=== PATIENT | male | born 1960 | race Caucasian/White ===

== ENCOUNTER 2021-12-02 14:20 | Inpatient (IN) | payer MEDICARE, MEDICAID ==
[~2021-12-02] VITALS: Ht 177 cm; Wt 53.4 kg
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
[2021-12-02] MEDS ORDERED: NS IV 1000 ML 1,000 ML IV SCH (14:30)
[2021-12-02] MEDS ORDERED: inSUlin (REGULAR) HUMAN 1 UNIT/0.01 ML (CHARGE PER UNIT) SC STA (14:33)
[2021-12-02 14:37] LABS: BASOPHILS % (AUTO) 1 % (0-10); EOSINOPHILS % (AUTO) 0 % (0-10); HEMATOCRIT 34 % (40-54); HEMOGLOBIN 11.6 g/dL (13.3-17.7); LYMPHOCYTES # (AUTO) 0.6 10^3/uL (1.0-4.0); LYMPHOCYTES % (AUTO) 11 % (12-44); MEAN CORPUSCULAR HEMOGLOBIN 33 pg (25-34); MEAN CORPUSCULAR HGB CONC 35 g/dL (32-36); MEAN CORPUSCULAR VOLUME 94 fL (80-99); MEAN PLATELET VOLUME 9.3 fL (9.0-12.2); MONOCYTES # (AUTO) 0.4 10^3/uL (0.0-1.0); MONOCYTES % (AUTO) 7 % (0-12); NEUTROPHILS # (AUTO) 4.2 10^3/uL (1.8-7.8); NEUTROPHILS % (AUTO) 81 % (42-75); PLATELET COUNT 231 10^3/uL (130-400); WHITE BLOOD COUNT 5.2 10^3/uL (4.3-11.0)
--- NOTE | 2021-12-02 14:46 | Diagnostic Imaging Report ---
INDICATION: Syncope, hyperglycemia No priors. There is some nodular infiltrates in the bases greatest in the left lower lobe suspect for pneumonia but warranting radiographic follow-up. No failure, effusion or pneumothorax. Emphysematous changes chronic. Impression: Chronic air trapping and COPD with some nodular left basilar opacity likely infiltrate warranting radiographic follow-up. No failure pattern. Dictated by: Dictated on workstation # [id number]
[2021-12-02 15:18] LABS: BILIRUBIN,URINE NEGATIVE (NEGATIVE); CLARITY,URINE CLEAR; COLOR,URINE YELLOW; GLUCOSE, URINE (UA) 3+ (NEGATIVE); KETONES,URINE NEGATIVE (NEGATIVE); LEUKOCYTE ESTERASE ,URINE NEGATIVE (NEGATIVE); NITRITE,URINE NEGATIVE (NEGATIVE); PH,URINE 5.5 (5-9); PROTEIN,URINE NEGATIVE (NEGATIVE)
[2021-12-02 15:23] LABS: BUN/CREATININE RATIO 22; CARBON DIOXIDE 30 MMOL/L (21-32); CHLORIDE 79 MMOL/L (98-107); CREATININE SERUM 0.67 MG/DL (0.60-1.30); GFR ESTIMATED 106; POTASSIUM 4.4 MMOL/L (3.6-5.0); SODIUM 124 MMOL/L (135-145)
[2021-12-02 15:24] LABS: ALANINE AMINOTRANSFERASE 33 U/L (0-55); ALBUMIN 3.6 GM/DL (3.2-4.5); ALKALINE PHOSPHATASE 280 U/L (40-136); BILIRUBIN,TOTAL 0.7 MG/DL (0.1-1.0); CALCIUM 9.8 MG/DL (8.5-10.1); GLUCOSE 1139 MG/DL (70-105); TOTAL PROTEIN 7.1 GM/DL (6.4-8.2)
[2021-12-02] MEDS ORDERED: cefTRIAXone 1 GM PRE-MIX 50 ML IV ONE (15:30)
[2021-12-02] MEDS ORDERED: AZITHROMYCIN INJECTION 500 MG in NS (IVPB) 250 ML IV ONE (15:30)
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
[2021-12-02 15:48] LABS: ABG PH 7.47 (7.37-7.43)
[2021-12-02 15:49] LABS: ABG BASE EXCESS 10.5 MMOL/L (-2.5-2.5); ABG OXYGEN SATURATION 97 % (94-100); ABG PCO2 49 MMHG (35-45); ABG PO2 85 MMHG (79-93); ABG TCO2 37.2 MMOL/L (21.0-31.0); PATIENT TEMP 37.6; VENTILATOR NO
[2021-12-02 15:50] LABS: INSPIRED O2 ROOM AIR
[2021-12-02 15:57] LABS: AMORPHOUS SEDIMENT,UR FEW AMOR URATES /LPF; BACTERIA,URINE TRACE /HPF; RBC,URINE 0-2 /HPF; SQUAMOUS EPITHELIAL CELL,UR 0-2 /HPF; WBC,URINE 0-2 /HPF
[2021-12-02 16:00] LABS: AMPHETAMINE SCREEN, URINE NEGATIVE (NEGATIVE); BARBITURATE SCREEN URINE NEGATIVE (NEGATIVE); BENZODIAZEPINES SCREEN URINE NEGATIVE (NEGATIVE); CANNABINOID SCREEN, URINE NEGATIVE (NEGATIVE); COCAINE SCREEN URINE NEGATIVE (NEGATIVE); METHADONE STAT NEGATIVE (NEGATIVE); OPIATE SCREEN URINE NEGATIVE (NEGATIVE); OXYCODONE STAT NEGATIVE (NEGATIVE); PROPOXYPHENE STAT NEGATIVE (NEGATIVE); TRICYCLIC ANTIDEPRESSANTS SCRE NEGATIVE (NEGATIVE)
[2021-12-02] MEDS ORDERED: LACTATED RINGERS 1,000 ML IV ONE ×2 (16:00→20:12)
[2021-12-02 17:11] LABS: POTASSIUM 3.5 MMOL/L (3.6-5.0)
[2021-12-02 17:12] LABS: ALBUMIN 2.9 GM/DL (3.2-4.5); BILIRUBIN,TOTAL 0.3 MG/DL (0.1-1.0); CALCIUM 8.6 MG/DL (8.5-10.1); CREATININE SERUM 0.54 MG/DL (0.60-1.30); TOTAL PROTEIN 5.8 GM/DL (6.4-8.2)
[2021-12-02] MEDS ORDERED: MELATONIN 3 MG TABLET PO PRN (17:15)
[2021-12-02] MEDS ORDERED: NS IV 500 ML 500 ML IV PRN (17:15)
[2021-12-02] MEDS ORDERED: polyethylene glycoL POWDER 17 GM (MIRALAX) PACK PO PRN (17:15)
[2021-12-02] MEDS ORDERED: cefTRIAXone 2,000 MG in NS (IVPB) 50 ML IV SCH (17:15)
[2021-12-02] MEDS ORDERED: ONDANSETRON 4 MG/2 ML (SDV) Z0FRAN IV PRN (17:15)
[2021-12-02] MEDS ORDERED: ONDANSETRON 4 MG (ZOFRAN) ORAL DISSOLVE TAB PO PRN (17:15)
[2021-12-02] MEDS ORDERED: inSUlin (REGULAR) HUMAN 1 UNIT/0.01 ML (CHARGE PER UNIT) IV ONE (17:15)
[2021-12-02] MEDS ORDERED: BISACODYL 10 MG SUPP (DULCOLAX) PR PRN (17:15)
[2021-12-02] MEDS ORDERED: diphenhydrAMINE 50 MG/ML INJ (BENADRYL) IVP PRN (17:15)
[2021-12-02] MEDS ORDERED: ACETAMINOPHEN 325 MG TABLET PO PRN (17:15)
[2021-12-02] MEDS ORDERED: ANTACID SUSP 30 ML UDC (MYLANTA) PO PRN (17:15)
[2021-12-02] MEDS ORDERED: diphenhydrAMINE 25 MG TAB (BENADRYL) PO PRN (17:15)
[2021-12-02 18:15] VITALS: BP 92/63
[2021-12-02] MEDS: NS IV 1000 ML 1,000 ML IV SCH ×2 (18:28→22:25)
[2021-12-02] MEDS ORDERED: RT-ALBUTEROL/IPRATROPIUM 3 ML (DUONEB) VIAL INH PRN (18:30)
--- NOTE | 2021-12-02 18:30 | Tele-ICU Progress Note ---
Subjective Date Seen by a Provider: Dec 02, 2021 Time Seen by a Provider: 18:00 Subjective/Events-last exam This virtual visit was conducted using real time audio/video. Thank you for asking us to see this patient for respiratory insufficiency due to probable COPD/bibasal infilts.. Admitted w DM with HHS, dehydration, syncope, fall, pna. PMH:Intellectually challenged, DM2, HTN, HL. SH: smoking history: former FH: Non-contributory ROS: as in HPI. PE: Cachectic. VSS. O2 sat 95% on RA HEENT: No obvious masses, adenopathy or JVD. Chest: clear to auscultation. Diminished CV: RRR S1 S2 No murmur or added sounds. Abd: Non-tender. Bowel sounds Y. : Unremarkable. French N. WEIGHT CALCULATOR/psychiatric: Grossly intact. No obvious focal findings. Extremities: No edema. Capillary refill < 3 seconds. Skin: unremarkable. Results: Elevated BG 610. Decreased K 3.5, Hb 11.5. B.47/49/85 on RA.. CXR: Hyperinflated, minor bibasal infilts. Available chart/ vitals / labs / images reviewed. Video assessment done using teleICU camera, rest of exam as per RN. A/P: Respiratory insufficiency: Continue present management with PRN O2. PRN duonebs added with hypercapnia. Monitor for increasing oxygenation needs and/or need for intubation. Critical Care: critically ill patient. Cont. IV insulin, abx, Arline. Discussed with SHAMEKA Hurley. Asked RN to reach out to eICU if any questions or concerns later. Time spent with patient/coordination of care with other health professionals (mins): 28 Sepsis Event Evaluation Height, Weight, BMI Height: '" Weight: lbs. oz. kg; BMI Method: Focused Exam Lactate Level 12/02/21 14:30: Lactic Acid Level 2.67*H 12/02/21 16:34: Lactic Acid Level 4.28*H Lactic Acid Level Laboratory Tests Test 12/02/21 14:30 12/02/21 16:34 Lactic Acid Level 2.67 MMOL/L (0.50-2.00) *H 4.28 MMOL/L (0.50-2.00) *H Exam Exam Patient acknowledged, consented, and participated in this virtual visit which was conducted using real time audio/video Vital Signs Date Time Temp Pulse Resp B/P (MAP) Pulse Ox O2 Delivery O2 Flow Rate FiO2 12/02/21 18:15 77 9 92/63 (73) 96 Room Air 12/02/21 18:05 77 12/02/21 17:05 37.3 76 16 102/65 96 Room Air 12/02/21 14:20 37.6 96 18 99/58 (72) 95 Room Air Height & Weight Height: '" Weight: lbs. oz. kg; BMI Method: General Appearance: Chronically ill, Thin Capillary Refill: Less Than 3 Seconds Peripheral Pulses: 1+ Dorsalis Pedis (R), 1+ Left Dors-Pedis (L) (See free text) Results Lab Laboratory Tests 12/02/21 14:30 12/02/21 16:34 Assessment/Plan Assessment/Plan See free text. Critical Care: Critically Ill Patient LINUS SIERRA MD Dec 02, 2021 18:30
[2021-12-02 18:48] LABS: BASOPHILS % (AUTO) 1 % (0-10); EOSINOPHILS % (AUTO) 1 % (0-10); HEMATOCRIT 30 % (40-54); HEMOGLOBIN 10.7 g/dL (13.3-17.7); LYMPHOCYTES # (AUTO) 1.3 10^3/uL (1.0-4.0); LYMPHOCYTES % (AUTO) 20 % (12-44); MEAN CORPUSCULAR HEMOGLOBIN 32 pg (25-34); MEAN CORPUSCULAR HGB CONC 36 g/dL (32-36); MEAN CORPUSCULAR VOLUME 89 fL (80-99); MEAN PLATELET VOLUME 8.9 fL (9.0-12.2); MONOCYTES # (AUTO) 0.6 10^3/uL (0.0-1.0); MONOCYTES % (AUTO) 9 % (0-12); NEUTROPHILS # (AUTO) 4.3 10^3/uL (1.8-7.8); NEUTROPHILS % (AUTO) 69 % (42-75); PLATELET COUNT 192 10^3/uL (130-400); WHITE BLOOD COUNT 6.3 10^3/uL (4.3-11.0)
[2021-12-02 19:00] VITALS: BP 85/62
[2021-12-02 20:00] VITALS: BP 90/63
[2021-12-02] MEDS ORDERED: LACTATED RINGERS 500 ML IV ONE (20:15)
[2021-12-02 21:00] VITALS: BP 91/70
[2021-12-02] MEDS: ENOXAPARIN INJECTION 30 MG/0.3 ML SYR SC SCH (21:00)
[2021-12-02] MEDS ORDERED: ADENOSINE 6 MG/2 ML (ADENOCARD) VIAL IV ONE ×2 (21:30→22:15)
[2021-12-02 22:00] VITALS: BP 102/71
[2021-12-02] MEDS: DOCUSATE SODIUM 100 MG (COLACE) CAP PO SCH (22:37)
[2021-12-02 23:00] VITALS: BP 86/61
[2021-12-03] VITALS (24 sets, daily range): BP systolic 82–119; BP diastolic 51–81
[2021-12-03] MEDS ORDERED: PHENYLEPHRINE DRIP 250 ML IV SCH (00:45)
[2021-12-03 05:36] LABS: HEMATOCRIT 29 % (40-54); HEMOGLOBIN 10.3 g/dL (13.3-17.7); MEAN CORPUSCULAR HEMOGLOBIN 32 pg (25-34); MEAN CORPUSCULAR HGB CONC 36 g/dL (32-36); MEAN CORPUSCULAR VOLUME 91 fL (80-99); MEAN PLATELET VOLUME 9.3 fL (9.0-12.2); PLATELET COUNT 223 10^3/uL (130-400); WHITE BLOOD COUNT 6.8 10^3/uL (4.3-11.0)
[2021-12-03] MEDS: NS IV 1000 ML 1,000 ML IV SCH ×3 (05:42→15:56)
[2021-12-03 05:53] LABS: POTASSIUM 2.9 MMOL/L (3.6-5.0)
[2021-12-03 05:54] LABS: CALCIUM 8.5 MG/DL (8.5-10.1)
[2021-12-03 05:59] LABS: CREATININE SERUM 0.67 MG/DL (0.60-1.30)
[2021-12-03 06:01] LABS: MAGNESIUM 1.7 MG/DL (1.6-2.4)
[2021-12-03] MEDS: POTASSIUM CL 10MEQ/50ML IVPB 50 ML IV SCH ×6 (06:16→15:57)
[2021-12-03] MEDS: KCL 20 MEQ TAB (K-DUR) PO SCH (06:16)
[2021-12-03] MEDS: MAGNESIUM 1 GM/100 ML IVPB 100 ML IV SCH ×3 (06:16→08:58)
[2021-12-03] MEDS ORDERED: POTASSIUM PHOSPHATE INJ 30 MM in NS (IVPB) 250 ML IV ONE (07:00)
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
--- NOTE | 2021-12-03 08:21 | Tele-ICU Progress Note ---
Subjective Date Seen by a Provider: Dec 03, 2021 Subjective/Events-last exam This virtual visit was conducted using real time audio/video. Thank you for asking us to see this patient for respiratory insufficiency due to probable COPD/bibasal infilts.. Admitted w DM with HHS, dehydration, syncope, fall, pna. Overnight: SVT resolvedand hypotension on Neosynephrine. PE: Cachectic. VSS. O2 sat 95% on RA HEENT: No obvious masses, adenopathy or JVD. Chest: clear to auscultation. Diminished CV: RRR S1 S2 No murmur or added sounds. Abd: Non-tender. Bowel sounds Y. : Unremarkable. French N. TELEVISION ENGINEERING TEACHER/psychiatric: Grossly intact. No obvious focal findings. Extremities: No edema. Capillary refill < 3 seconds. Skin: unremarkable. Results: Elevated BG 142. Decreased K 2.9, Hb 11.5. B.47/49/85 on RA.. CXR: Hyperinflated, minor bibasal infilts. CTH neg. Available chart/ vitals / labs / images reviewed. Video assessment done using teleICU camera, rest of exam as per RN. A/P: Respiratory insufficiency: Continue present management with PRN O2. PRN duonebs added 12/02 with hypercapnia. Monitor for increasing oxygenation needs and/or need for intubation. Critical Care: critically ill patient. ? D/C IV insulin. Cont. abx, Arline. Phenylephrine, weaning as courtney. replace K. Discussed with RN Cindi. Asked RN to reach out to eICU if any questions or concerns later. Time spent with patient/coordination of care with other health professionals (mins): 22 Sepsis Event Evaluation Height, Weight, BMI Height: '" Weight: lbs. oz. kg; 16.85 BMI Method: Focused Exam Lactate Level 12/02/21 18:35: Lactic Acid Level 3.94*H 12/02/21 20:36: Lactic Acid Level 2.98*H 12/02/21 22:50: Lactic Acid Level 1.59 Exam Exam Patient acknowledged, consented, and participated in this virtual visit which was conducted using real time audio/video Vital Signs Date Time Temp Pulse Resp B/P (MAP) Pulse Ox O2 Delivery O2 Flow Rate FiO2 12/03/21 07:50 36.9 12/03/21 07:23 54 12/03/21 07:00 57 14 99/78 (85) 97 Room Air 12/03/21 06:56 96 Room Air 12/03/21 06:00 53 15 95/74 (81) 97 Room Air 12/03/21 05:00 57 13 100/81 (87) 96 Room Air 12/03/21 04:00 99 Room Air 12/03/21 04:00 57 13 103/75 (84) 95 Room Air 12/03/21 03:00 55 15 103/76 (85) 97 Room Air 12/03/21 02:00 51 12 109/79 (89) 96 Room Air 12/03/21 01:27 61 83/62 12/03/21 01:00 60 14 83/62 (69) 97 Room Air 12/03/21 01:00 60 12/03/21 00:00 36.7 12/03/21 00:00 63 14 83/60 (68) 94 Room Air 12/03/21 00:00 99 Room Air 12/02/21 23:00 75 15 86/61 (69) 95 Room Air 12/02/21 22:00 168 17 102/71 (81) 95 Room Air 12/02/21 21:00 70 11 91/70 (77) 94 Room Air 12/02/21 20:00 73 8 90/63 (72) 95 Room Air 12/02/21 20:00 99 Room Air 12/02/21 19:38 36.2 12/02/21 19:00 82 12/02/21 19:00 75 7 85/62 (70) 96 Room Air 12/02/21 18:32 36.2 12/02/21 18:15 77 9 92/63 (73) 96 Room Air 12/02/21 18:05 77 12/02/21 17:05 37.3 76 16 102/65 96 Room Air 12/02/21 14:20 37.6 96 18 99/58 (72) 95 Room Air I & O 12/03/21 07:00 Intake Total 3350 ml Output Total 1400 ml Balance 1950 ml Height & Weight Height: '" Weight: lbs. oz. kg; 16.85 BMI Method: General Appearance: Chronically ill, Thin Capillary Refill: Less Than 3 Seconds Peripheral Pulses: 1+ Dorsalis Pedis (R), 1+ Left Dors-Pedis (L) (See free text) Gastrointestinal: normal bowel sounds, non tender, soft Results Lab Laboratory Tests 12/02/21 14:30 12/02/21 16:34 12/02/21 18:35 12/03/21 05:00 Assessment/Plan Assessment/Plan See free text. Critical Care: Critically Ill Patient LINUS SIERRA MD Dec 03, 2021 08:21
[2021-12-03] MEDS: DOCUSATE SODIUM 100 MG (COLACE) CAP PO SCH ×2 (08:32→20:12)
[2021-12-03] MEDS: AZITHROMYCIN 250 MG TAB (ZITHROMAX) PO SCH (08:58)
--- NOTE | 2021-12-03 09:12 | Physical Therapy Evaluation ---
PT Evaluation-General Medical Diagnosis Admission Date Dec 02, 2021 at 17:50 Medical Diagnosis: syncopal episode, fall Onset Date: Dec 02, 2021 Therapy Diagnosis Therapy Diagnosis: impaired mobility, strength, balance Precautions Precautions/Isolations: Fall Prevention, Standard Precautions Weight Bear Status Right Lower Extremity: Right Weight Bearing/Tolerated Left Lower Extremity: Left Weight Bearing/Tolerated Referral Physician: Aneudy Reason for Referral: Evaluation/Treatment Medical History Pertinent Medical History: DM, HTN Additional Medical History HLD, intellectually challenged Social History Patient is uncertain of this info, states he doesn't have a home. Prior Prior Level of Function SCALE: Activities may be completed with or without assistive devices. 2-Fcnipvpgbg-auywhru completes the activity by him/herself with no assistance from a helper. 5-Set-up or Clean-up Assistance-helper sets up or cleans up; patient completes activity. [place] assists only prior to or following the activity. 4-Supervision or Touching Assistance-helper provides verbal cues and/or touching/steadying and/or contact guard assistance as patient completes activity. Assistance may be provided throughout the activity or intermittently. 3-Partial/Moderate Assistance-helper does LESS THAN HALF the effort. [place] lifts, holds or supports trunk or limbs, but provides less than half the effort. 2-Substantial/Maximal Assistance-helper does MORE THAN HALF the effort. [place] lifts or holds trunk or limbs and provides more than half the effort. 8-Qzjvbogsa-wyplpx does ALL the effort. Patient does none of the effort to complete the activity. Or, the assistance of 2 or more helpers is required for the patient to complete the activity. If activity was not attempted, code reason: 7-Patient Refused. 9-Not Applicable-not attempted and the patient did not perform the activity before the current illness, exacerbation or injury. 10-Not Attempted due to Environmental Limitations-(lack of equipment, weather restraints, etc.). 88-Not Attempted due to Medical Conditions or Safety Concerns. Bed Mobility: 6 Transfers (B,C,W/C): 6 Gait: 6 Stairs: 6 Indoor Mobility (Ambulation): Independent Stairs: Independent PT Evaluation-Current Subjective Patient in bed pre tx, agrees to PT, has no complaints of pain. Pt/Family Goals none stated Objective Patient Orientation: Person, Confused Attachments: French Catheter, IV ROM/Strength ROM Lower Extremities WNL Strength Lower Extremities LLE (hip flexion 3/5, knee flexion 4/5, knee extension 4/5, dorsiflexion 0/5), RLE (hip flexion 3/5, knee flexion 4/5, knee extension 4/5, dorsiflexion 0/5) Sensory Vision: Wears Glasses Hearing: Functional Transfers Roll Left to Right (QC): 6 Sit to Lying (QC): 6 Lying to Sitting/Side of Bed(Q: 6 Sit to Stand (QC): 3 Patient was able to perform sit to stand with min assist, after standing he leans heavily forward and cannot regain his balance, sits back down for safety. His O2 stays in the 90's and HR is between 60-70 bpm. Balance Sitting Static: Normal Sitting Dynamic: Normal Standing Static: Poor Standing Dynamic: Poor Treatment supine BLE exercises x10 (AP, HS) Assessment/Needs Patient in bed post tx with nurse call, phone, tray, all needs met. Patient's bed alarm is not working, nurse in room and is aware of this. Rehab Potential: Fair PT Custodial Goals Custodial Goals PT Custodial Goals Time Frame: Dec 10, 2021 Roll Left & Right (QC): 6 Sit to Lying (QC): 6 Lying-Sitting on Side/Bed(QC): 6 Sit to Stand (QC): 4 Chair/Vpz-wy-Djiob Xfer(QC): 4 Walk 10 feet (QC): 4 Walk 50ft with 2 Turns (QC): 4 PT Plan Problem List Problem List: Activity Tolerance, Functional Strength, Safety, Balance, Gait, Transfer, Bed Mobility, ROM Treatment/Plan Treatment Plan: Continue Plan of Care Treatment Plan: Bed Mobility, Education, Functional Activity [place], Functional Strength, Gait, Safety, Therapeutic Exercise, Transfers Treatment Duration: Dec 10, 2021 Frequency: 6 times per week Estimated Hrs Per Day: .25 hour per day Patient and/or Family Agrees t: Yes Safety Risks/Education Patient Education: Correct Positioning, Safety Issues Teaching Recipient: Patient Teaching Methods: Demonstration, Discussion Response to Teaching: Reinforcement Needed Discharge Recommendations Plan Patient will perform bed mobility and transfer training, balance and endurance training, functional strengthening, stair training, gait training, and education, to improve functional mobility and independence at home. Therapy Discharge Recommendati: Post Acute PT Time/GCodes Time In: 853 Time Out: 08 Total Billed Treatment Time: 12 Total Billed Treatment 1 visit DORINA MELGAR PT Dec 03, 2021 09:12
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
[2021-12-03] MEDS: inSUlin ASPART (NovoLOG) 1 UNIT/0.01 ML (CHARGE PER UNIT) SC SCH ×3 (14:28→20:11)
[2021-12-03] MEDS: cefTRIAXone 2,000 MG in NS (IVPB) 50 ML IV SCH (14:28)
[2021-12-03 17:41] LABS: POTASSIUM 3.9 MMOL/L (3.6-5.0)
[2021-12-03 17:42] LABS: CALCIUM 8.2 MG/DL (8.5-10.1)
[2021-12-03 17:46] LABS: CREATININE SERUM 0.74 MG/DL (0.60-1.30)
[2021-12-03 17:49] LABS: MAGNESIUM 2.2 MG/DL (1.6-2.4)
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
[2021-12-03] MEDS: ENOXAPARIN INJECTION 30 MG/0.3 ML SYR SC SCH (20:09)
[2021-12-04] VITALS (25 sets, daily range): BP systolic 86–125; BP diastolic 59–94
[2021-12-04] MEDS: NS IV 1000 ML 1,000 ML IV SCH (00:30)
[2021-12-04 03:47] LABS: HEMATOCRIT 31 % (40-54); HEMOGLOBIN 10.8 g/dL (13.3-17.7); MEAN CORPUSCULAR HEMOGLOBIN 33 pg (25-34); MEAN CORPUSCULAR HGB CONC 35 g/dL (32-36); MEAN CORPUSCULAR VOLUME 93 fL (80-99); MEAN PLATELET VOLUME 9.4 fL (9.0-12.2); PLATELET COUNT 196 10^3/uL (130-400); WHITE BLOOD COUNT 5.3 10^3/uL (4.3-11.0)
[2021-12-04 04:00] LABS: POTASSIUM 3.7 MMOL/L (3.6-5.0)
[2021-12-04 04:01] LABS: CALCIUM 8.4 MG/DL (8.5-10.1)
[2021-12-04 04:05] LABS: PHOSPHORUS 2.5 MG/DL (2.3-4.7)
[2021-12-04 04:06] LABS: CREATININE SERUM 0.69 MG/DL (0.60-1.30)
[2021-12-04] MEDS: inSUlin ASPART (NovoLOG) 1 UNIT/0.01 ML (CHARGE PER UNIT) SC SCH ×3 (05:19→21:16)
[2021-12-04] MEDS: POTASSIUM CL 10MEQ/50ML IVPB 50 ML IV SCH (05:19)
[2021-12-04] MEDS: KCL 20 MEQ TAB (K-DUR) PO SCH (05:19)
[2021-12-04] MEDS: MAGNESIUM 1 GM/100 ML IVPB 100 ML IV SCH (05:19)
[2021-12-04] MEDS: AZITHROMYCIN 250 MG TAB (ZITHROMAX) PO SCH (07:51)
[2021-12-04] MEDS: DOCUSATE SODIUM 100 MG (COLACE) CAP PO SCH ×2 (07:51→21:17)
--- NOTE | 2021-12-04 08:30 | Cardiology Progress Note ---
Subjective Date Seen by Provider: Dec 04, 2021 Time Seen by Provider: 08:28 Subjective/Events-last exam Patient was seen at bedside, laying down comfortably Denied any chest pain or shortness of breath Still hypotensive. Review of Systems General: No Chills, No Night Sweats, No Fatigue, No Malaise, No Appetite, No Other HEENT: No Head Aches, No Visual Changes, No Eye Pain, No Ear Pain, No Dysphasia, No Sinus Congestion, No Post Nasal Drip, No Sore Throat, No Other Pulmonary: No Dyspnea, No Cough, No Pleuritic Chest Pain, No Other Cardiovascular: No: Chest Pain, Palpitations, Orthopnea, Paroxysmal Noc. Dyspnea, Edema, Lt Headedness, Other Focused Exam Lactate Level 12/02/21 18:35: Lactic Acid Level 3.94*H 12/02/21 20:36: Lactic Acid Level 2.98*H 12/02/21 22:50: Lactic Acid Level 1.59 Objective-Cardiology Exam Last Set of Vital Signs Vital Signs 12/04/21 12/04/21 12/04/21 06:00 07:00 08:00 Temp 36.0 Pulse 62 Resp 18 B/P (MAP) 125/94 (104) Pulse Ox 95 O2 Delivery Room Air I&O Intake and Output 12/04/21 00:00 Intake Total 1430 ml Output Total 2625 ml Balance -1195 ml Intake Oral 1380 ml IV Total 50 ml Output Urine Total 2625 ml General: Alert, Oriented X3, Cooperative HEENT: Atraumatic, PERRLA Neck: Supple, No JVD, No Thyromegaly Lungs: Clear to Auscultation, Normal Air Movement Heart: Regular Rate, Normal S1, Normal S2, No Murmurs Abdomen: Normal Bowel Sounds, Soft, No Tenderness, No Hepatosplenomegaly, No Masses Extremities: No Clubbing, No Cyanosis, No Edema, Normal Pulses, No Tenderness/Swelling Skin: No Rashes, No Breakdown, No Significant Lesion Neuro: Normal Gait, Normal Speech, Strength at 5/5 X4 Ext, Normal Tone, Sensation Intact Psych/Mental Status: Mental Status NL, Mood NL Results Lab Laboratory Tests 12/03/21 17:25 12/04/21 03:29 A/P-Cardiology Admission Diagnosis Chest pain Palpitation Supraventricular tachycardia Diabetic ketoacidosis Hypotensive shock Assessment/Plan Chest pain, palpitation, most probably secondary to tachycardia and hypotension Feeling better at this time. Tachycardia, narrow complex tachycardia most probably reentry tachycardia. Terminated after giving adenosine 6 mg IV. Currently in sinus rhythm with no acute abnormality. 2D echo was done on December 03, 2021 showing ejection fraction 50-55, PA pressure 25 to 30 mmHg Hypotensive shock, hypovolemic, received large amount of IV fluid, currently on Evangelist-Synephrine. Has history of hypertension. Still hypotensive at this time, will continue to wean him off pressors. Status post syncope, probably secondary to hypotension and dehydration. Better at this time. Still hypotensive Hyperlipidemia, monitor lipids Diabetic ketoacidosis, on protocol, improving. Continue to titrate and adjust his medication Developmental delay, patient is oriented to time and place. DINH SESAY MD Dec 04, 2021 08:30
[2021-12-04] MEDS ORDERED: RT-ALBUTEROL/IPRATROPIUM 3 ML (DUONEB) VIAL INH PRN (09:30)
[2021-12-04] MEDS ORDERED: NS IV 1000 ML 1,000 ML IV SCH (10:30)
--- NOTE | 2021-12-04 11:14 | Physical Therapy Daily Note ---
PT Daily Note-Current Subjective Patient in bed pre tx, agrees to PT, has no complaints of pain. Appearance Patient in recliner post tx with nurse call, phone, tray, chair alarm on. Mental Status Patient Orientation: Person, Unable to Assess Attachments: French Catheter, IV Transfers SCALE: Activities may be completed with or without assistive devices. 1-Drmcthpext-ikgurlo completes the activity by him/herself with no assistance from a helper. 5-Set-up or Clean-up Assistance-helper sets up or cleans up; patient completes activity. [place] assists only prior to or following the activity. 4-Supervision or Touching Assistance-helper provides verbal cues and/or touching/steadying and/or contact guard assistance as patient completes activity. Assistance may be provided throughout the activity or intermittently. 3-Partial/Moderate Assistance-helper does LESS THAN HALF the effort. [place] lifts, holds or supports trunk or limbs, but provides less than half the effort. 2-Substantial/Maximal Assistance-helper does MORE THAN HALF the effort. [place] lifts or holds trunk or limbs and provides more than half the effort. 3-Kydqheves-pkcjca does ALL the effort. Patient does none of the effort to complete the activity. Or, the assistance of 2 or more helpers is required for the patient to complete the activity. If activity was not attempted, code reason: 7-Patient Refused. 9-Not Applicable-not attempted and the patient did not perform the activity before the current illness, exacerbation or injury. 10-Not Attempted due to Environmental Limitations-(lack of equipment, weather restraints, etc.). 88-Not Attempted due to Medical Conditions or Safety Concerns. Roll Left & Right (QC): 6 Lying to Sitting/Side of Bed(Q: 4 Sit to Stand (QC): 3 Chair/Mbq-tt-Taqfq Xfer(QC): 3 Weight Bearing Right Lower Extremity: Right Weight Bearing/Tolerated Left Lower Extremity: Left Weight Bearing/Tolerated Gait Training Distance: 30' Walk 10 feet (QC): 3 Gait Persons Needed: 1 Gait Assistive Device: FWW Patient is pretty unsteady during ambulation, needs min assist to maintain balance. Exercises Seated Therapy Exercises: Ankle pumps, Long arc quads Seated Reps: 20 Treatments bed mobility and transfers, ambulation, LE ROM Assessment Current Status: Fair Progress slightly improve functional mobility but still pretty unsteady during transfers and ambulation PT Senior Care Goals Senior Care Goals PT Senior Care Goals Time Frame: Dec 10, 2021 Roll Left & Right (QC): 6 Sit to Lying (QC): 6 Lying-Sitting on Side/Bed(QC): 6 Sit to Stand (QC): 4 Chair/Ayx-yo-Yksby Xfer(QC): 4 Walk 10 feet (QC): 4 Walk 50ft with 2 Turns (QC): 4 PT Plan Problem List Problem List: Activity Tolerance, Functional Strength, Safety, Balance, Gait, Transfer, Bed Mobility, ROM Treatment/Plan Treatment Plan: Continue Plan of Care Treatment Plan: Bed Mobility, Education, Functional Activity Bet[place], Functional Strength, Gait, Safety, Therapeutic Exercise, Transfers Treatment Duration: Dec 10, 2021 Frequency: 6 times per week Estimated Hrs Per Day: .25 hour per day Patient and/or Family Agrees t: Yes Safety Risks/Education Patient Education: Gait Training, Transfer Techniques, Correct Positioning, Safety Issues Teaching Recipient: Patient Teaching Methods: Demonstration, Discussion Response to Teaching: Reinforcement Needed Time/GCodes Time In: 1027 Time Out: 1037 Total Billed Treatment Time: 10 Total Billed Treatment 1 visit FA DORINA SALINAS PT Dec 04, 2021 11:14
--- NOTE | 2021-12-04 11:39 | Occupational Ther Daily Note ---
OT Current Status-Daily Note Subjective Pt alert, working with PT. Pt alert, sitting EOB. No c/o pain. Mental Status/Objective Patient Orientation: Person, Place, MR Attachments: French Catheter, IV, Telemetry ADL-Treatment Therapy Code Descriptions/Definitions Functional [place] Measure: 0=Not Assessed/NA 4=Minimal Assistance 1=Total Assistance 5=Supervision or Setup 2=Maximal Assistance 6=Modified [place] 3=Moderate Assistance 7=Complete IndependenceSCALE: Activities may be completed with or without assistive devices. 8-Imwdsvrffy-tllcgbx completes the activity by him/herself with no assistance from a helper. 5-Set-up or Clean-up Assistance-helper sets up or cleans up; patient completes activity. [place] assists only prior to or following the activity. 4-Supervision or Touching Assistance-helper provides verbal cues and/or touching/steadying and/or contact guard assistance as patient completes activity. Assistance may be provided throughout the activity or intermittently. 3-Partial/Moderate Assistance-helper does LESS THAN HALF the effort. [place] lifts, holds or supports trunk or limbs, but provides less than half the effort. 2-Substantial/Maximal Assistance-helper does MORE THAN HALF the effort. [place] lifts or holds trunk or limbs and provides more than half the effort. 0-Wdjkoaokk-relqml does ALL the effort. Patient does none of the effort to complete the activity. Or, the assistance of 2 or more helpers is required for the patient to complete the activity. If activity was not attempted, code reason: 7-Patient Refused. 9-Not Applicable-not attempted and the patient did not perform the activity before the current illness, exacerbation or injury. 10-Not Attempted due to Environmental Limitations-(lack of equipment, weather restraints, etc.). 88-Not Attempted due to Medical Conditions or Safety Concerns. Other Treatment Pt is improving with mobility. Pt completes transfer using FWW with min A to CGA. Pt demonstrates WFL B UE AROM. Pt able to use B UE to position self back in chair without difficulty. After therapy, pt sitting in recliner with call light in reach. Chair alarm placed and activated. All needs met. OT Short Term Goals Short Term Goals Time Frame: Dec 08, 2021 Eatin Toileting hygiene: 3 Shower/bathe self: 3 Upper body dressin Lower body dressin Putting on/taking off footwear: 3 OT Junior Staff Accountant Goals [facility] Goals Time Frame: Dec 10, 2021 Eating (QC): 5 Oral Hygiene (QC): 9 Toileting Hygiene (QC): 5 Shower/Bathe Self (QC): 5 Upper Body Dressing (QC): 5 Lower Body Dressing (QC): 5 On/Off Footwear (QC): 5 Additional Goals: 1-Demonstrate ADL Tasks, 2-Verbalize Understanding, 3- ImproveStrength/[place] 1=Demonstrate adherence to instructed precautions during ADL tasks. 2=Patient will verbalize/demonstrate understanding of assistive devices/modifications for ADL. 3=Patient will improve strength/tolerance for activity to enable patient to perform ADL's. OT Education/Plan Problem List/Assessment Assessment: Decreased Activ Tolerance, Decreased Safety Aware, Impaired Funct Balance Discharge Recommendations Plan/Recommendations: Continue POC Treatment Plan/Plan of Care Patient would benefit from OT for education, treatment and training to promote independence in ADL's, mobility, safety and/or upper extremity function for ADL's. Plan of Care: ADL Retraining, Caregiver Training, Functional Mobility, UE Funct Exercise/Act, UE Neuromus Re-Ed/Coord Treatment Duration: Dec 10, 2021 Frequency: 5 times per week Estimated Hrs Per Day: .5 hour per day Agreement: Yes Rehab Potential: Fair Time/GCodes Start Time: 10:30 Stop Time: 10:39 Total Time Billed (hr/min): 9 Billed Treatment Time 1 visit-FA 1 (9 min) DERREK HERNANDEZ Dec 04, 2021 11:39
[2021-12-04] MEDS: cefTRIAXone 2,000 MG in NS (IVPB) 50 ML IV SCH (16:39)
[2021-12-04] MEDS: RT-ALBUTEROL/IPRATROPIUM 3 ML (DUONEB) VIAL INH SCH (18:31)
[2021-12-04] MEDS: ENOXAPARIN INJECTION 30 MG/0.3 ML SYR SC SCH (19:54)
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
[2021-12-04] MEDS ORDERED: meTOprolol TARTRATE 25 MG (LOPRESSOR) TABLET ONE (21:33)
[2021-12-04] MEDS ORDERED: GABAPENTIN 600 MG (NEURONTIN) TAB ONE (21:34)
[2021-12-05] VITALS (11 sets, daily range): BP systolic 89–109; BP diastolic 64–78
[2021-12-05] MEDS: NS IV 1000 ML 1,000 ML IV SCH (03:00)
[2021-12-05 04:24] LABS: MEAN PLATELET VOLUME 9.7 fL (9.0-12.2)
[2021-12-05 04:26] LABS: HEMOGLOBIN 9.6 g/dL (13.3-17.7); WHITE BLOOD COUNT 4.5 10^3/uL (4.3-11.0)
[2021-12-05 04:38] LABS: POTASSIUM 3.9 MMOL/L (3.6-5.0)
[2021-12-05 04:39] LABS: CALCIUM 8.3 MG/DL (8.5-10.1)
[2021-12-05] MEDS: inSUlin ASPART (NovoLOG) 1 UNIT/0.01 ML (CHARGE PER UNIT) SC SCH (04:42)
[2021-12-05] MEDS: KCL 20 MEQ TAB (K-DUR) PO SCH (04:42)
[2021-12-05] MEDS: POTASSIUM CL 10MEQ/50ML IVPB 50 ML IV SCH (04:42)
[2021-12-05 04:43] LABS: CREATININE SERUM 0.77 MG/DL (0.60-1.30); PHOSPHORUS 3.2 MG/DL (2.3-4.7)
[2021-12-05] MEDS: MAGNESIUM 1 GM/100 ML IVPB 100 ML IV SCH (04:43)
[2021-12-05 04:46] LABS: MAGNESIUM 1.8 MG/DL (1.6-2.4)
[2021-12-05] MEDS ORDERED: metFORMIN 500 MG (GLUCOPHAGE) TAB PO SCH (07:00)
[2021-12-05] MEDS: DOCUSATE SODIUM 100 MG (COLACE) CAP PO SCH (07:28)
--- NOTE | 2021-12-05 09:45 | Tele-ICU Progress Note ---
Subjective Date Seen by a Provider: Dec 05, 2021 Time Seen by a Provider: 09:40 Subjective/Events-last exam 61 M with development delay, found in delay with DKA glu 1138, now DKA resolved after DKA protocol and heat exhaustion, No sign of renal failure Sepsis Event Evaluation Height, Weight, BMI Height: '" Weight: lbs. oz. kg; 17.04 BMI Method: Focused Exam Lactate Level 12/02/21 18:35: Lactic Acid Level 3.94*H 12/02/21 20:36: Lactic Acid Level 2.98*H 12/02/21 22:50: Lactic Acid Level 1.59 Exam Exam Patient acknowledged, consented, and participated in this virtual visit which was conducted using real time audio/video Vital Signs Date Time Temp Pulse Resp B/P (MAP) Pulse Ox O2 Delivery O2 Flow Rate FiO2 12/05/21 08:00 36.0 12/05/21 08:00 72 17 107/77 (87) 96 Room Air 12/05/21 08:00 96 Room Air 12/05/21 07:00 69 16 102/69 (80) 94 Room Air 12/05/21 07:00 67 12/05/21 06:00 70 19 99/70 (80) 94 Room Air 12/05/21 05:00 67 19 104/78 (87) 96 Room Air 12/05/21 04:00 69 16 89/65 (73) 93 Room Air 12/05/21 03:50 37.0 Room Air 12/05/21 03:50 96 Room Air 12/05/21 03:00 71 20 95/69 (78) 94 Room Air 12/05/21 02:00 71 17 93/64 (74) 95 Room Air 12/05/21 01:00 77 16 102/76 (85) 94 Room Air 12/05/21 01:00 77 12/05/21 00:00 84 21 109/72 (84) 93 Room Air 12/04/21 23:30 98 Room Air 12/04/21 23:30 36.8 Room Air 12/04/21 23:00 82 20 107/67 (80) 93 Room Air 12/04/21 22:00 81 20 95/67 (76) 93 Room Air 12/04/21 21:00 83 25 92/67 (75) 92 Room Air 12/04/21 20:00 84 20 89/59 (69) 90 Room Air 12/04/21 19:45 97 Room Air 12/04/21 19:00 84 12/04/21 19:00 37.1 84 20 99/77 (84) 92 Room Air 12/04/21 18:31 94 Room Air 12/04/21 18:00 75 19 107/70 (82) 93 Room Air 12/04/21 17:00 84 20 123/81 (95) 98 Room Air 12/04/21 16:15 36.4 12/04/21 16:00 99 Room Air 12/04/21 16:00 71 17 94/64 (74) 96 Room Air 12/04/21 15:00 73 20 95/63 (74) 93 Room Air 12/04/21 14:00 72 17 98/72 (81) 90 Room Air 12/04/21 13:00 71 12/04/21 13:00 69 14 94/68 (77) 95 Room Air 12/04/21 12:00 77 15 106/74 (85) 93 Room Air 12/04/21 12:00 36.3 12/04/21 12:00 99 Room Air 12/04/21 11:00 68 13 88/65 (73) 100 Room Air 12/04/21 10:00 69 12 88/64 (72) 94 Room Air I & O 12/05/21 07:00 Intake Total 3800 ml Output Total 2890 ml Balance 910 ml Height & Weight Height: '" Weight: lbs. oz. kg; 17.04 BMI Method: General Appearance: No Apparent Distress, Thin HEENT: PERRL/EOMI, Pharynx Normal Neck: Normal Inspection, Supple Respiratory: Lungs Clear, No Respiratory Distress Cardiovascular: Regular Rate, Rhythm, No Edema, No Murmur Capillary Refill: Less Than 3 Seconds Peripheral Pulses: 1+ Dorsalis Pedis (R), 1+ Left Dors-Pedis (L) (See free t ext) Gastrointestinal: normal bowel sounds, non tender, soft Extremity: Normal Inspection, No Pedal Edema Neurologic/Psychiatric: Alert, Oriented x3, Normal Mood/Affect Skin: Normal Color, Warm/Dry Lymphatic: No Adenopathy Results Lab Laboratory Tests 12/03/21 17:25 12/04/21 03:29 12/05/21 03:51 Assessment/Plan Assessment/Plan DKA resolved, eating, will give scheduled dose of Levimer insulin and metformin but probably need insulin at home, would have to make arrangment, plan is short term fo go to a facility where glu can be monitored ROSARIO ANGLIN MD Dec 05, 2021 09:45
[2021-12-05] MEDS: RT-ALBUTEROL/IPRATROPIUM 3 ML (DUONEB) VIAL INH SCH (09:58)
--- NOTE | 2021-12-05 09:59 | Cardiology Progress Note ---
Subjective Date Seen by Provider: Dec 05, 2021 Time Seen by Provider: 09:59 Subjective/Events-last exam Patient was seen at bedside, laying down comfortably Denies any chest pain or shortness of breath. Feeling better Still borderline hypotensive Review of Systems General: No Chills, No Night Sweats, No Fatigue, No Malaise, No Appetite, No Other HEENT: No Head Aches, No Visual Changes, No Eye Pain, No Ear Pain, No Dysphasia, No Sinus Congestion, No Post Nasal Drip, No Sore Throat, No Other Pulmonary: No Dyspnea, No Cough, No Pleuritic Chest Pain, No Other Cardiovascular: No: Chest Pain, Palpitations, Orthopnea, Paroxysmal Noc. Dyspnea, Edema, Lt Headedness, Other Focused Exam Lactate Level 12/02/21 18:35: Lactic Acid Level 3.94*H 12/02/21 20:36: Lactic Acid Level 2.98*H 12/02/21 22:50: Lactic Acid Level 1.59 Objective-Cardiology Exam Last Set of Vital Signs Vital Signs I&O Intake and Output 12/05/21 00:00 Intake Total 4175 ml Output Total 2590 ml Balance 1585 ml Intake Oral 2125 ml IV Total 2050 ml Output Urine Total 2590 ml General: Alert, Oriented X3, Cooperative HEENT: Atraumatic, PERRLA Neck: Supple, No JVD, No Thyromegaly Lungs: Clear to Auscultation, Normal Air Movement Heart: Regular Rate, Normal S1, Normal S2, No Murmurs Abdomen: Normal Bowel Sounds, Soft, No Tenderness, No Hepatosplenomegaly, No Masses Extremities: No Clubbing, No Cyanosis, No Edema, Normal Pulses, No Tenderness/Swelling Skin: No Rashes, No Breakdown, No Significant Lesion Neuro: Normal Gait, Normal Speech, Strength at 5/5 X4 Ext, Normal Tone, Sensati on Intact Psych/Mental Status: Mental Status NL, Mood NL Results Lab Laboratory Tests 12/05/21 03:51 A/P-Cardiology Admission Diagnosis Chest pain Palpitation Supraventricular tachycardia Diabetic ketoacidosis Hypotensive shock Assessment/Plan Chest pain, palpitation, most probably secondary to tachycardia and hypotension Feeling better at this time. Tachycardia, narrow complex tachycardia most probably reentry tachycardia. Terminated after giving adenosine 6 mg IV. Currently in sinus rhythm with no acute abnormality. 2D echo was done on December 03, 2021 showing ejection fraction 50-55, PA pressure 25 to 30 mmHg Hypotensive shock, hypovolemic, received large amount of IV fluid, currently on Evangelist-Synephrine. Has history of hypertension. Still hypotensive at this time, will continue to wean him off pressors. Status post syncope, probably secondary to hypotension and dehydration. Better at this time. Still hypotensive Hyperlipidemia, monitor lipids Diabetic ketoacidosis, on protocol, improving. Continue to titrate and adjust his medication Developmental delay, patient is oriented to time and place. Okay for discharge from cardiology standpoint DINH SESAY MD Dec 05, 2021 09:59
[2021-12-05] MEDS ORDERED: METF-397 PO (10:21)
[2021-12-05] MEDS ORDERED: AZIT250T12 PO (10:21)
[2021-12-05] MEDS ORDERED: INSU100I10 SQ (10:21)
[2021-12-05] MEDS ORDERED: CEFD300C3 PO (10:21)
--- NOTE | 2021-12-05 10:21 | Discharge Inst-Skilled Nursing ---
Discharge Inst-Skilled NF Consult/Follow Up/Orders Follow Up Appt.: next alf rounds Skilled NF Admit to: [facility] Certification (SNF) I certify that SNF services are required to be given on an inpatient basis because of the above named patient's need for group home care on a continuing basis for the conditions(s) for which he/she was receiving inpatient hospital services prior to his/her transfer to the SNF. [facility] Facility Order: Nursing Services, Athletic Agent-Evaluate & Treat, Physical Therapy-Evaluate & Treat Oxygen Delivery Method: Room Air Discharge Diet: No Restrictions Daily Activity as Tolerated: Yes Resuscitation Status: Full Code New & Resume Previous Orders Amy Kumar Dec 05, 2021 10:21 AMY KUMAR MD Dec 05, 2021 10:21
--- NOTE | 2021-12-05 13:34 | Physical Therapy Daily Note ---
PT Daily Note-Current Subjective Pt in bed upon arrival and agrees to PT. Says he is feeling better today. Mental Status Patient Orientation: Person, Confused Attachments: French Catheter, IV Transfers SCALE: Activities may be completed with or without assistive devices. 3-Hjzwzjxktl-wwdywph completes the activity by him/herself with no assistance from a helper. 5-Set-up or Clean-up Assistance-helper sets up or cleans up; patient completes activity. [place] assists only prior to or following the activity. 4-Supervision or Touching Assistance-helper provides verbal cues and/or touching/steadying and/or contact guard assistance as patient completes activity. Assistance may be provided throughout the activity or intermittently. 3-Partial/Moderate Assistance-helper does LESS THAN HALF the effort. [place] lifts, holds or supports trunk or limbs, but provides less than half the effort. 2-Substantial/Maximal Assistance-helper does MORE THAN HALF the effort. [place] lifts or holds trunk or limbs and provides more than half the effort. 4-Yclsndieg-azdthy does ALL the effort. Patient does none of the effort to complete the activity. Or, the assistance of 2 or more helpers is required for the patient to complete the activity. If activity was not attempted, code reason: 7-Patient Refused. 9-Not Applicable-not attempted and the patient did not perform the activity before the current illness, exacerbation or injury. 10-Not Attempted due to Environmental Limitations-(lack of equipment, weather restraints, etc.). 88-Not Attempted due to Medical Conditions or Safety Concerns. Lying to Sitting/Side of Bed(Q: 5 Sit to Stand (QC): 4 Weight Bearing Right Lower Extremity: Right Weight Bearing/Tolerated Left Lower Extremity: Left Weight Bearing/Tolerated Gait Training Does the Patient Walk?: Yes Distance: 10' Walk 10 feet (QC): 4 Gait Persons Needed: 1 Gait Assistive Device: FWW Treatments Pt amb from bed to recliner. All needs met and call light nearby. Assessment Pt required steadying assistance while amb and for FWW placement. Required frequent verbal and tactile cues. PT Retirement Goals Shoes Salesperson Goals PT Shoes Salesperson Goals Time Frame: Dec 10, 2021 Roll Left & Right (QC): 6 Sit to Lying (QC): 6 Lying-Sitting on Side/Bed(QC): 6 Sit to Stand (QC): 4 Chair/Kox-hp-Qyeoj Xfer(QC): 4 Walk 10 feet (QC): 4 Walk 50ft with 2 Turns (QC): 4 PT Plan Problem List Problem List: Safety, Gait, Transfer Treatment/Plan Treatment Plan: Continue Plan of Care Treatment Plan: Bed Mobility, Education, Functional Activity Betito, Functional Strength, Gait, Safety, Therapeutic Exercise, Transfers Treatment Duration: Dec 10, 2021 Frequency: 6 times per week Estimated Hrs Per Day: .25 hour per day Patient and/or Family Agrees t: Yes Safety Risks/Education Patient Education: Gait Training, Transfer Techniques Teaching Recipient: Patient Teaching Methods: Demonstration, Discussion Response to Teaching: Return Demonstration Time/GCodes Time In: 0843 Time Out: 0857 Total Billed Treatment Time: 14 Total Billed Treatment 1, FA DEE BARRERA PILE DRIVER OPERATOR Dec 05, 2021 13:34
--- NOTE | 2021-12-05 21:27 | Discharge Summary ---
Discharge Summary Hospital Course Problems/Dx: (1) Type 2 diabetes mellitus with hyperosmolar hyperglycemic state (HHS) Status: Acute (2) Septic shock Status: Acute (3) Pneumonia Status: Acute Qualifiers: Qualified Codes: J18.9 - Pneumonia, unspecified organism (4) Lactic acidosis Status: Acute Hospital Course Date of Admission: Dec 02, 2021 at 17:50 Admission Diagnosis : T2DM with HHS Family Physician/Provider: Kevin Tovar MD Date of Discharge: 12/05/21 Discharge Diagnosis: T2DM with HHS, septic shock with pneumonia Hospital Course: Gabriele Gan is a 61 year old male with PMH HTN, T2DM, cognitive impairment, who presented with altered mental status and was admitted with HHS. He initially required IV insulin. His blood sugar normalized. He was transitioned to subQ Levemir. His course was complicated by septic shock and pneumonia. He was treated with IV antibiotics and pressors. He was able to be weaned off the pressors. He will complete a course of Omnicef. He was debilitated and was discharged to [facility] for ongoing skilled needs. Labs and Pending Lab Test: Laboratory Tests 12/05/21 03:51: White Blood Count 4.5, Red Blood Count 2.97L, Hemoglobin 9.6L, Hematocrit 28L, Mean Corpuscular Volume 96, Mean Corpuscular Hemoglobin 32, Mean Corpuscular Hemoglobin Concent 34, Red Cell Distribution Width 13.2, Platelet Count 144, Mean Platelet Volume 9.7, Percent Immature Platelet Fraction 3.0, Sodium Level 136, Potassium Level 3.9, Chloride Level 103, Carbon Dioxide Level 27, Anion Gap 6, Blood Urea Nitrogen 11, Creatinine 0.77, Estimat Glomerular Filtration Rate 101, BUN/Creatinine Ratio 14, Glucose Level 173H, Calcium Level 8.3L, Phosphorus Level 3.2, Magnesium Level 1.8 Microbiology 12/02/21 MRSA Screen - Final, Complete MRSA not isolated 12/02/21 Blood Culture - Final, Complete Staph, Coag Neg (NURSE STAFF [employer]) Home Meds Active Lantus Solostar (Insulin Glargine,Hum.rec.anlog) 100 Unit/Ml (3 Ml) Insuln.pen 20 Unit SQ DAILY 30 Days Azithromycin 250 Mg Tablet 250 Mg PO DAILY 3 Days Cefdinir 300 Mg Capsule 300 Mg PO BID 5 Days Metformin HCl 500 Mg Tablet 500 Mg PO DAILY@07 30 Days Assessment/Pt Instructions See instructions Discharge Planning: >30 minutes discharge planning Discharge Instructions Discharge Diet: No Restrictions Activity as Tolerated: Yes Discharge Physical Examination Vital Signs Vital Signs Date Time Temp Pulse Resp B/P (MAP) Pulse Ox O2 Delivery O2 Flow Rate FiO2 12/05/21 11:00 80 17 106/68 (81) 95 Room Air 12/05/21 08:00 36.0 General Appearance: No Apparent Distress, Thin Respiratory: Lungs Clear, No Respiratory Distress Cardiovascular: Regular Rate, Rhythm, No Murmur Gastrointestinal: Normal Bowel Sounds, Soft Extremity: Normal Inspection, No Pedal Edema Skin: Normal Color, Warm/Dry Neurologic/Psychiatric: Alert, Normal Mood/Affect Allergies: Coded Allergies: No Known Drug Allergies (Unverified , 12/02/21) Discharge Summary Date of Admission Dec 02, 2021 at 17:50 Date of Discharge Dec 05, 2021 at 11:45 Discharge Date: Dec 05, 2021 Discharge Time: 11:45 Admission Diagnosis HHS Discharge Diagnosis T2DM with HHS Septic shock Pneumonia Hypokalemia Hypophosphatemia (1) Type 2 diabetes mellitus with hyperosmolar hyperglycemic state (HHS) Status: Acute (2) Septic shock Status: Acute (3) Pneumonia Status: Acute Qualifiers: Qualified Codes: J18.9 - Pneumonia, unspecified organism (4) Lactic acidosis Status: Acute AMY KUMAR MD Dec 05, 2021 21:27
== END 2021-12-05 11:45 | DRG 871 ==
LOC: ER FS 14:22 → ICU 17:50 → UNDOADMIN 18:01 → ICU 12-03 10:43
PROVIDERS: ADMIT Internal Medicine; ATTEND Internal Medicine
DX: A41.9 Sepsis, unspecified organism (principal); E11.00 Type 2 diabetes mellitus with hyperosmolarity without nonketotic hyperglycemic-hyperosmolar coma (NKHHC); R65.21 Severe sepsis with septic shock; J18.9 Pneumonia, unspecified organism; E87.2 Acidosis; J44.0 Chronic obstructive pulmonary disease with (acute) lower respiratory infection; I47.1 Supraventricular tachycardia; I10 Essential (primary) hypertension; E78.5 Hyperlipidemia, unspecified; G31.84 Mild cognitive impairment of uncertain or unknown etiology; E87.6 Hypokalemia; E83.39 Other disorders of phosphorus metabolism; R62.50 Unspecified lack of expected normal physiological development in childhood; I95.9 Hypotension, unspecified; E86.1 Hypovolemia
CPT/HCPCS: 36415; 70450; 71045; 72125; 80048; 80053; 80306; 80320; 81000; 81002; 82805; 82947; 83036; 83605; 83735; 83930; 83935; 84100; 84145; 84484; 85025; 85027; 87040; 87081; 93005; 93306; 94640; 99291

== ENCOUNTER 2022-03-11 15:23 | Emergency (ER) | payer MEDICARE, MEDICAID ==
[~2022-03-11] VITALS: Ht 170.2 cm; Wt 64.9 kg
[~2022-03-11 15:23] MED LIST: AZIT250T12 PO; CEFD300C3 PO; INSU100I10 SQ; METF-397 PO
[2022-03-11] MEDS ORDERED: ASPIRIN 81 MG CHEW (CHILDREN'S ASA) PO ONE (15:30)
[2022-03-11 15:39] LABS: BASOPHILS # (AUTO) 0.1 10^3/uL (0.0-0.1); BASOPHILS % (AUTO) 1 % (0-10); EOSINOPHILS # (AUTO) 0.4 10^3/uL (0.0-0.3); EOSINOPHILS % (AUTO) 6 % (0-10); HEMATOCRIT 36 % (40-54); HEMOGLOBIN 12.6 g/dL (13.3-17.7); LYMPHOCYTES # (AUTO) 2.5 10^3/uL (1.0-4.0); LYMPHOCYTES % (AUTO) 39 % (12-44); MEAN CORPUSCULAR HEMOGLOBIN 31 pg (25-34); MEAN CORPUSCULAR HGB CONC 35 g/dL (32-36); MEAN CORPUSCULAR VOLUME 88 fL (80-99); MEAN PLATELET VOLUME 9.5 fL (9.0-12.2); MONOCYTES # (AUTO) 0.5 10^3/uL (0.0-1.0); MONOCYTES % (AUTO) 8 % (0-12); NEUTROPHILS # (AUTO) 2.9 10^3/uL (1.8-7.8); NEUTROPHILS % (AUTO) 46 % (42-75); PLATELET COUNT 279 10^3/uL (130-400); WHITE BLOOD COUNT 6.3 10^3/uL (4.3-11.0)
--- NOTE | 2022-03-11 15:40 | ED Chest Pain ---
General Chief Complaint: Chest Pain Stated Complaint: CP Source: patient, care home records History of Present Illness Date Seen by Provider: Mar 11, 2022 Time Seen by Provider: 15:31 Initial Comments 61-year-old male presenting from [facility] with complaints of burning pain in his epigastric area when he lays down. He states he does not have it during the day but it is just when he lays down at night. He reports having this present for months to years. He was sent to the emergency department by the staff at [facility] because they were concerned about having a heart attack. He denies having any pain currently. He does have a history of diabetes and is intellectually challenged. Timing/Duration: gone now Severity/Quality: moderate, burning Location: epigastric Radiation: no radiation Activities at Onset: other (Laying down in bed) Prior CP/Workup: no prior cardiac workup Modifying Factors: improves with lying down ASA po SHEETMETAL WORKER: No NTG SL SHEETMETAL WORKER: No Associated Symptoms: abdominal pain (Epigastric abdominal burning pain); No back pain, No diaphoresis, No dizziness, No edema, No fatigue, No fever/chills, No headache, No nausea/vomiting, No rash, No shortness of breath, No swelling/lump in chest, No syncope Allergies and Home Medications Allergies Coded Allergies: No Known Drug Allergies (Unverified , 12/02/21) Patient Home Medication List Home Medication List Reviewed: Yes Azithromycin (Azithromycin) 250 Mg Tablet, 250 MG PO DAILY Prescribed by: AMY KUMAR on 12/05/21 1021 Cefdinir (Cefdinir) 300 Mg Capsule, 300 MG PO BID Prescribed by: AMY KUMAR on 12/05/21 1021 Insulin Glargine,Hum.rec.anlog (Lantus Solostar) 100 Unit/Ml (3 Ml) Insuln.pen, 20 UNIT SQ DAILY Prescribed by: AMY KUMAR on 12/05/21 1021 Metformin HCl (Metformin HCl) 500 Mg Tablet, 500 MG PO DAILY@07 Prescribed by: AMY KUMAR on 12/05/21 1021 Pantoprazole Sodium (Pantoprazole Sodium) 40 Mg Tablet.dr, 40 MG PO DAILY Prescribed by: TIARA HENSLEY on 03/11/22 9986 Review of Systems Review of Systems Constitutional: No chills, No dizziness, No fever EENTM: No Symptoms Reported Respiratory: No Symptoms Reported Cardiovascular: No Symptoms Reported Gastrointestinal: See HPI Genitourinary: No Symptoms Reported Musculoskeletal: no symptoms reported Skin: no symptoms reported Psychiatric/Neurological: No Symptoms Reported Past Xicadbn-Xnpeim-Rwcjvz Hx Past Medical History Surgery/Hospitalization HX: Developmental Delay; DM Non compliant Family Medical History No Pertinent Family Hx Physical Exam Vital Signs Vital Signs - First Documented 03/11/22 15:28 Temp 36.7 Pulse 115 Resp 17 B/P (MAP) 121/95 (104) Pulse Ox 97 O2 Delivery Room Air Capillary Refill : Height, Weight, BMI Height: '" Weight: lbs. oz. kg; 17.04 BMI Method: General Appearance: No Apparent Distress, WD/WN HEENT: PERRL/EOMI, Pharynx Normal Neck: Full Range of Motion, Normal Inspection, Non Tender, Supple; No Carotid Bruit Respiratory: Chest Non Tender, Lungs Clear, Normal Breath Sounds, No Accessory Muscle Use, No Respiratory Distress Cardiovascular: Regular Rate, Rhythm, Normal Peripheral Pulses Gastrointestinal: Normal Bowel Sounds, No Pulsatile Mass, Non Tender, Soft Rectal: Deferred Extremity: Normal Capillary Refill, Normal Inspection, No Pedal Edema Neurologic/Psychiatric: Alert, Oriented x3 Skin: Normal Color, Warm/Dry Progress/Results/Core Measures Results/Orders Lab Results Laboratory Tests Test 03/11/22 15:28 Range/Units White Blood Count 6.3 4.3-11.0 10^3/uL Red Blood Count 4.08 L 4.30-5.52 10^6/uL Hemoglobin 12.6 L 13.3-17.7 g/dL Hematocrit 36 L 40-54 % Mean Corpuscular Volume 88 80-99 fL Mean Corpuscular Hemoglobin 31 25-34 pg Mean Corpuscular Hemoglobin Concent 35 32-36 g/dL Red Cell Distribution Width 12.3 10.0-14.5 % Platelet Count 279 130-400 10^3/uL Mean Platelet Volume 9.5 9.0-12.2 fL Immature Granulocyte % (Auto) 0 % Neutrophils (%) (Auto) 46 42-75 % Lymphocytes (%) (Auto) 39 12-44 % Monocytes (%) (Auto) 8 0-12 % Eosinophils (%) (Auto) 6 0-10 % Basophils (%) (Auto) 1 0-10 % Neutrophils # (Auto) 2.9 1.8-7.8 10^3/uL Lymphocytes # (Auto) 2.5 1.0-4.0 10^3/uL Monocytes # (Auto) 0.5 0.0-1.0 10^3/uL Eosinophils # (Auto) 0.4 H 0.0-0.3 10^3/uL Basophils # (Auto) 0.1 0.0-0.1 10^3/uL Immature Granulocyte # (Auto) 0.0 0.0-0.1 10^3/uL Prothrombin Time 13.0 12.2-14.7 SEC INR Comment 1.0 0.8-1.4 Activated Partial Thromboplast Time 27 24-35 SEC Sodium Level 142 135-145 MMOL/L Potassium Level 4.2 3.6-5.0 MMOL/L Chloride Level 101 98-107 MMOL/L Carbon Dioxide Level 29 21-32 MMOL/L Anion Gap 12 5-14 MMOL/L Blood Urea Nitrogen 19 H 7-18 MG/DL Creatinine 0.73 0.60-1.30 MG/DL Estimat Glomerular Filtration Rate 103 BUN/Creatinine Ratio 26 Glucose Level 270 H 70-105 MG/DL Calcium Level 9.7 8.5-10.1 MG/DL Corrected Calcium 9.7 8.5-10.1 MG/DL Magnesium Level 1.8 1.6-2.4 MG/DL Total Bilirubin 0.2 0.1-1.0 MG/DL Aspartate Amino Transf (AST/SGOT) 10 5-34 U/L Alanine Aminotransferase (ALT/SGPT) 7 0-55 U/L Alkaline Phosphatase 118 40-136 U/L Troponin I < 0.30 <0.30 NG/ML Pro-B-Type Natriuretic Peptide < 5.0 <125.0 PG/ML Total Protein 7.3 6.4-8.2 GM/DL Albumin 4.0 3.2-4.5 GM/DL Lipase 9 8-78 U/L My Orders Orders - TIARA HENSLEY MD Cbc With Automated Diff (03/11/22 15:28) Magnesium (03/11/22 15:28) Chest 1 View Ap/Pa Only (03/11/22 15:28) Ekg Tracing (03/11/22 15:28) Comprehensive Metabolic Panel (03/11/22 15:28) Protime With Inr (03/11/22 15:28) Partial Thromboplastin Time (03/11/22 15:28) O2 (03/11/22 15:28) Monitor-Rhythm Ecg Trace Only (03/11/22 15:28) Ed Iv/Invasive Line Start (03/11/22 15:28) Lipase (03/11/22 15:28) Troponin I Fs (03/11/22 15:28) Probnp Fs (03/11/22 15:28) Vital Signs/I&O 03/11/22 03/11/22 15:28 17:21 Temp 36.7 36.7 Pulse 115 115 Resp 17 17 B/P (MAP) 121/95 (104) 121/95 Pulse Ox 97 97 O2 Delivery Room Air Room Air Progress Progress Note #1: Progress Note Obtain basic labs and cardiac enzymes as well as electrocardiogram and chest x- ray. Initially ordered aspirin 324 mg but with his complaint of burning chest pain not present currently and only when he is laying down at night, will hold that for now. Differential diagnosis includes acute coronary syndrome, myocardial infarction, GERD, gastritis Progress Note #2: Progress Note CBC does not show any acute significant abnormality. His chemistry panel was also stable and he had negative cardiac enzymes. His electrocardiogram did not show any acute ischemia or significant abnormality. His chest x-ray was showing atelectasis vs infiltrate in left base. However, since he was not having elevated WBC, shortness of breath, productive cough, fever, hypoxia, this was likely atelectasis Counseled on follow-up with primary care provider. In the meantime will prescribe antiacid medication to try and help with possible gastritis or ulcer since he has burning pain in the epigastric area just with he lays down. Advised he may need EGD to look for ulcers or have his pcp set him up for additional evaluation beyond the ED capability. Initial ECG Impression Date: Mar 11, 2022 Initial ECG Impression Time: 15:28 Initial ECG Rate: 109 Initial ECG Rhythm: S.Tach Initial ECG Comparisson: Unchanged (December 2021) Comment On my on my individual interpretation and review of his electrocardiogram he has sinus tachycardia with a heart rate of 109 bpm. WI interval 146 ms. He has no acute ST elevation. QT interval 315 ms with a QTc interval 379 ms. Overall this appears similar to prior tracings from December 2021. Diagnostic Imaging Diagonstic Imaging: Xray Plain Films/CT/US/NM/MRI: chest Comments [facility] [place], [place] NAME: ARIELLA CLAUDIO [facility] REC#: [id number] PT STATUS: REG ER : 1960 PHYSICIAN: TIARA HENSLEY MD ADMIT DATE: 03/11/22/ER FS Signed Date of Exam:03/11/22 CHEST 1 VIEW AP/PA ONLY INDICATION: Chest pain. TECHNIQUE/COMPARISON: A frontal chest was obtained at 3:32 PM and compared to 12/02/2021. FINDINGS: The heart and mediastinal silhouette are normal in appearance. There is some minimal infiltrate versus atelectasis in the left lateral base. There is no pneumothorax or pleural fluid. IMPRESSION: Minimal infiltrate versus atelectasis in the left lateral base. Suggest followup as clinically warranted. Dictated by: Dictated on workstation # [id number] Dict: 03/11/22 1539 Trans: 03/11/22 1653 [id number] Interpreted by: MAHENDRA VALLEJO MD Electronically signed by: MAHENDRA VALLEJO MD 03/11/22 1653 Departure Impression Primary Impression: Gastritis Qualified Codes: K29.50 - Unspecified chronic gastritis without bleeding Additional Impression: GERD (gastroesophageal reflux disease) Qualified Codes: K21.9 - Gastro-esophageal reflux disease without esophagitis Disposition: 01 HOME, SELF-CARE Condition: Stable Departure-Patient Inst. Decision time for Depature: 17:11 Referrals: LETICIA CAMPA MD (PCP/Family) Primary Care Physician Patient Instructions: Gastritis ED, Acid Reflux, Adult and Adolescent ED Add. Discharge Instructions: Stay well hydrated and drink plenty of water Take the acid reducing medicine to help with the burning sensation in epigastric area when you lay down to sleep at night. If this persists your doctor may want to have you see a GI doctor or surgeon to check for ulcers in the stomach. All discharge instructions reviewed with patient and/or family. Voiced understanding. Scripts Pantoprazole Sodium (Pantoprazole Sodium) 40 Mg Tablet. 40 MG PO DAILY for gastritis for 30 Days, #30 TAB 0 Refills Prov: TIARA HENSLEY MD 03/11/22 TIARA HENSLEY MD Mar 11, 2022 15:40
--- NOTE | 2022-03-11 15:45 | Diagnostic Imaging Report ---
INDICATION: Chest pain. TECHNIQUE/COMPARISON: A frontal chest was obtained at 3:32 PM and compared to 12/02/2021. FINDINGS: The heart and mediastinal silhouette are normal in appearance. There is some minimal infiltrate versus atelectasis in the left lateral base. There is no pneumothorax or pleural fluid. IMPRESSION: Minimal infiltrate versus atelectasis in the left lateral base. Suggest followup as clinically warranted. Dictated by: Dictated on workstation # [id number]
[2022-03-11 16:09] LABS: CREATININE SERUM 0.73 MG/DL (0.60-1.30); POTASSIUM 4.2 MMOL/L (3.6-5.0)
[2022-03-11 16:10] LABS: BILIRUBIN,TOTAL 0.2 MG/DL (0.1-1.0); CALCIUM 9.7 MG/DL (8.5-10.1); MAGNESIUM 1.8 MG/DL (1.6-2.4); TOTAL PROTEIN 7.3 GM/DL (6.4-8.2)
[2022-03-11] MEDS ORDERED: PANT40TA52 PO (17:16)
[2022-03-11 17:21] VITALS: BP 121/95
== END 2022-03-11 17:21 | disposition home or self-care (01) ==
LOC: EDUNIT# 15:23 → ER FS 15:24
DX: K29.70 Gastritis, unspecified, without bleeding (principal); K21.9 Gastro-esophageal reflux disease without esophagitis; R00.1 Bradycardia, unspecified
CPT/HCPCS: 36415; 71045; 80053; 83690; 83735; 83880; 84484; 85025; 85610; 85730; 93005; 93041

== ENCOUNTER 2022-06-15 13:44 | Observation (INO) | payer MEDICARE, MEDICAID ==
[2022-06-15] VITALS (12 sets, daily range): BP systolic 94–188; BP diastolic 72–91
[~2022-06-15] VITALS: Ht 180.3 cm; Wt 65.5 kg
[~2022-06-15 13:44] MED LIST changes: +PANT40TA52 PO
--- NOTE | 2022-06-15 13:52 | ED Chest Pain ---
General Stated Complaint: ABN EKG; CHEST PAIN Source: patient Exam Limitations: physical impairment History of Present Illness Date Seen by Provider: Jun 15, 2022 Time Seen by Provider: 13:40 Initial Comments 61-year-old male from [facility] who has mental retardation presents to the emergency department today for chest pain. He reportedly had an abnormal EKG was sent over by the nurse practitioner. He is complaining of some chest pain. When asked how long he has had the chest pain he states "since I was 12." That majority of the history is provided by the nurse from [facility] who is at the bedside. She states he does not typically complain of pain. They have found him slumped over holding his chest several times today. No history of cardiac disease. he is diabetic. Allergies and Home Medications Allergies Coded Allergies: No Known Drug Allergies (Unverified , 12/02/21) Patient Home Medication List Home Medication List Reviewed: Yes Azithromycin (Azithromycin) 250 Mg Tablet, 250 MG PO DAILY Prescribed by: AMY KUMAR on 12/05/21 1021 Cefdinir (Cefdinir) 300 Mg Capsule, 300 MG PO BID Prescribed by: AMY KUMAR on 12/05/21 1021 Insulin Glargine,Hum.rec.anlog (Lantus Solostar) 100 Unit/Ml (3 Ml) Insuln.pen, 20 UNIT SQ DAILY Prescribed by: AMY KUMAR on 12/05/21 1021 Metformin HCl (Metformin HCl) 500 Mg Tablet, 500 MG PO DAILY@07 Prescribed by: AMY KUMAR on 12/05/21 1021 Pantoprazole Sodium (Pantoprazole Sodium) 40 Mg Tablet.dr, 40 MG PO DAILY Prescribed by: TIARA HENSLEY on 03/11/22 1716 Review of Systems Review of Systems Constitutional: no symptoms reported EENTM: No Symptoms Reported Respiratory: No Symptoms Reported Cardiovascular: Chest Pain Gastrointestinal: No Symptoms Reported Genitourinary: No Symptoms Reported Musculoskeletal: no symptoms reported Skin: no symptoms reported Psychiatric/Neurological: No Symptoms Reported Endocrine: No Symptoms Reported Hematologic/Lymphatic: No Symptoms Reported Past Wzxwzsb-Vqppje-Lzrhrh Hx Patient Social History Tobacco Use?: No Use of E-Cig and/or Vaping dev: No Substance use?: No Alcohol Use?: No Past Medical History Surgery/Hospitalization HX: Developmental Delay; DM Non compliant Family Medical History Reviewed Nursing Family Hx No Pertinent Family Hx Physical Exam Vital Signs Vital Signs - First Documented 06/15/22 13:50 Temp 36.4 Pulse 108 Resp 18 B/P (MAP) 120/75 (90) Pulse Ox 100 O2 Delivery Room Air Capillary Refill : Height, Weight, BMI Height: '" Weight: lbs. oz. kg; 22.00 BMI Method: General Appearance: No Apparent Distress, WD/WN HEENT: PERRL/EOMI, Normal ENT Inspection, Pharynx Normal Neck: Full Range of Motion, Normal Inspection, Non Tender, Supple Respiratory: Chest Non Tender, Lungs Clear, Normal Breath Sounds, No Accessory Muscle Use, No Respiratory Distress Cardiovascular: Regular Rate, Rhythm, No Edema, No Murmur, Normal Peripheral Pulses Gastrointestinal: Normal Bowel Sounds, No Organomegaly, Non Tender, Soft Extremity: Normal Capillary Refill, Normal Inspection, Normal Range of Motion, Non Tender, No Calf Tenderness Neurologic/Psychiatric: Alert, No Motor/Sensory Deficits, Normal Mood/Affect Skin: Normal Color, Warm/Dry Progress/Results/Core Measures Results/Orders Lab Results Laboratory Tests Test 06/15/22 14:00 Range/Units White Blood Count 6.6 4.3-11.0 10^3/uL Red Blood Count 4.28 L 4.30-5.52 10^6/uL Hemoglobin 12.9 L 13.3-17.7 g/dL Hematocrit 37 L 40-54 % Mean Corpuscular Volume 87 80-99 fL Mean Corpuscular Hemoglobin 30 25-34 pg Mean Corpuscular Hemoglobin Concent 35 32-36 g/dL Red Cell Distribution Width 12.7 10.0-14.5 % Platelet Count 309 130-400 10^3/uL Mean Platelet Volume 9.9 9.0-12.2 fL Immature Granulocyte % (Auto) 0 % Neutrophils (%) (Auto) 50 42-75 % Lymphocytes (%) (Auto) 36 12-44 % Monocytes (%) (Auto) 8 0-12 % Eosinophils (%) (Auto) 5 0-10 % Basophils (%) (Auto) 1 0-10 % Neutrophils # (Auto) 3.3 1.8-7.8 10^3/uL Lymphocytes # (Auto) 2.4 1.0-4.0 10^3/uL Monocytes # (Auto) 0.5 0.0-1.0 10^3/uL Eosinophils # (Auto) 0.3 0.0-0.3 10^3/uL Basophils # (Auto) 0.1 0.0-0.1 10^3/uL Immature Granulocyte # (Auto) 0.0 0.0-0.1 10^3/uL Sodium Level 142 135-145 MMOL/L Potassium Level 4.4 3.6-5.0 MMOL/L Chloride Level 101 98-107 MMOL/L Carbon Dioxide Level 30 21-32 MMOL/L Anion Gap 11 5-14 MMOL/L Blood Urea Nitrogen 16 7-18 MG/DL Creatinine 0.65 0.60-1.30 MG/DL Estimat Glomerular Filtration Rate 107 BUN/Creatinine Ratio 25 Glucose Level 136 H 70-105 MG/DL Calcium Level 10.1 8.5-10.1 MG/DL Corrected Calcium 9.9 8.5-10.1 MG/DL Magnesium Level 1.9 1.6-2.4 MG/DL Total Bilirubin 0.4 0.1-1.0 MG/DL Aspartate Amino Transf (AST/SGOT) 11 5-34 U/L Alanine Aminotransferase (ALT/SGPT) 5 0-55 U/L Alkaline Phosphatase 100 40-136 U/L Troponin I < 0.30 <0.30 NG/ML Total Protein 8.0 6.4-8.2 GM/DL Albumin 4.3 3.2-4.5 GM/DL My Orders Orders - STEPHANIEMEHREEN DO Cbc With Automated Diff (06/15/22 13:49) Magnesium (06/15/22 13:49) Chest 1 View Ap/Pa Only (06/15/22 13:49) Ekg Tracing (06/15/22 13:49) Comprehensive Metabolic Panel (06/15/22 13:49) Aspirin Chewable Tablet (Baby Aspirin Ch (06/15/22 14:00) Ed Iv/Invasive Line Start (06/15/22 13:49) Troponin I Fs (06/15/22 13:49) Ed Admission (Communication) (06/15/22 14:12) Enoxaparin Injection (Lovenox Injection) (06/15/22 14:45) Medications Given in ED Current Medications Medications Dose Ordered Sig/Bhavana Route Start Time Stop Time Status Last Admin Dose Admin Aspirin 324 mg ONCE ONCE PO 06/15/22 14:00 06/15/22 14:01 DC 06/15/22 14:19 324 MG Enoxaparin Sodium 60 mg ONCE ONCE SC 06/15/22 14:45 06/15/22 14:46 DC 06/15/22 15:03 60 MG Vital Signs/I&O 06/15/22 13:50 Temp 36.4 Pulse 108 Resp 18 B/P (MAP) 120/75 (90) Pulse Ox 100 O2 Delivery Room Air Comment Her initial EKG is a sinus rhythm. There are some baseline artifact. Normal in tervals and normal axis. No obvious ST or T wave abnormalities and no ectopy. This is compared to the EKG brought in by the nurse. This EKG shows ST elevations in leads II, III and aVF, mildly in V5 and V6 as well. Departure Communication (Admissions) I spoke with Dr. Baird initially upon patient arrival and reviewed the EKGs with him. Initial EKG at the outside facility shows concerning ST elevations, more diffusely though there are no reciprocal changes. These are most prominent in leads II, III and aVF. Our EKG has some baseline interference however there is no obvious ST elevations. He agrees with this evaluation. He states the patient will need to be transported for further evaluation however we can wait for troponin and lab evaluation and will not treat this is a STEMI at this time. The patient is having active chest pain. He has been given aspirin. He is otherwise hemodynamically stable. Pending lab work at this time. 1440: Patient's work-up is otherwise unremarkable with negative troponin and normal electrolytes, renal function. Normal CBC. He has been hemodynamically stable throughout his stay. I spoke with Dr. Kumar who accepts the patient in transfer. Impression Primary Impression: Chest pain Qualified Codes: R07.9 - Chest pain, unspecified Disposition: 30 STILL A PATIENT Condition: Stable Departure-Patient Inst. Referrals: LETICIA CAMPA MD (PCP) Primary Care Physician MEHREEN BROWN DO Jun 15, 2022 13:52
[2022-06-15] MEDS ORDERED: ASPIRIN 81 MG CHEW (CHILDREN'S ASA) PO ONE (14:00)
[2022-06-15 14:03] LABS: BASOPHILS # (AUTO) 0.1 10^3/uL (0.0-0.1); BASOPHILS % (AUTO) 1 % (0-10); EOSINOPHILS # (AUTO) 0.3 10^3/uL (0.0-0.3); EOSINOPHILS % (AUTO) 5 % (0-10); HEMATOCRIT 37 % (40-54); HEMOGLOBIN 12.9 g/dL (13.3-17.7); LYMPHOCYTES # (AUTO) 2.4 10^3/uL (1.0-4.0); LYMPHOCYTES % (AUTO) 36 % (12-44); MEAN CORPUSCULAR HEMOGLOBIN 30 pg (25-34); MEAN CORPUSCULAR HGB CONC 35 g/dL (32-36); MEAN CORPUSCULAR VOLUME 87 fL (80-99); MEAN PLATELET VOLUME 9.9 fL (9.0-12.2); MONOCYTES # (AUTO) 0.5 10^3/uL (0.0-1.0); MONOCYTES % (AUTO) 8 % (0-12); NEUTROPHILS # (AUTO) 3.3 10^3/uL (1.8-7.8); NEUTROPHILS % (AUTO) 50 % (42-75); PLATELET COUNT 309 10^3/uL (130-400); WHITE BLOOD COUNT 6.6 10^3/uL (4.3-11.0)
[2022-06-15 14:34] LABS: CREATININE SERUM 0.65 MG/DL (0.60-1.30); POTASSIUM 4.4 MMOL/L (3.6-5.0)
[2022-06-15 14:35] LABS: ALBUMIN 4.3 GM/DL (3.2-4.5); BILIRUBIN,TOTAL 0.4 MG/DL (0.1-1.0); CALCIUM 10.1 MG/DL (8.5-10.1); MAGNESIUM 1.9 MG/DL (1.6-2.4)
[2022-06-15] MEDS ORDERED: ENOXAPARIN 60 MG/0.6 ML (LOVENOX) SYR SC ONE (14:45)
--- NOTE | 2022-06-15 14:45 | Diagnostic Imaging Report ---
INDICATION: Chest pain COMPARED: 03/11/2022 FINDINGS: The lungs are clear. There is no failure, effusion or pneumothorax. There has been no change from prior. IMPRESSION: Stable frontal chest. Dictated by: Dictated on workstation # [id number]
[2022-06-15] MEDS ORDERED: ANTACID SUSP 30 ML UDC (MYLANTA) PO PRN (16:30)
[2022-06-15] MEDS ORDERED: MELATONIN 3 MG TABLET PO PRN (16:30)
[2022-06-15] MEDS ORDERED: diphenhydrAMINE 50 MG/ML INJ (BENADRYL) IVP PRN (16:30)
[2022-06-15] MEDS ORDERED: diphenhydrAMINE 25 MG TAB (BENADRYL) PO PRN (16:30)
[2022-06-15] MEDS ORDERED: ACETAMINOPHEN 325 MG TABLET PO PRN (16:30)
[2022-06-15] MEDS ORDERED: ONDANSETRON 4 MG/2 ML (SDV) Z0FRAN IV PRN (16:30)
[2022-06-15] MEDS ORDERED: BISACODYL 10 MG SUPP (DULCOLAX) PR PRN (16:30)
[2022-06-15] MEDS ORDERED: ONDANSETRON 4 MG (ZOFRAN) ORAL DISSOLVE TAB PO PRN (16:30)
[2022-06-15] MEDS ORDERED: ENOXAPARIN 100 MG/1 ML (LOVENOX) SYR SC SCH (16:30)
[2022-06-15] MEDS ORDERED: polyethylene glycoL POWDER 17 GM (MIRALAX) PACK PO PRN (16:30)
[2022-06-15] MEDS ORDERED: LIDO1ADH66 TP (17:01)
[2022-06-15] MEDS ORDERED: POLY17PO6 PO (17:01)
[2022-06-15] MEDS ORDERED: ACET-2267 PO (17:01)
[2022-06-15] MEDS ORDERED: INSU100C3 SQ (17:01)
[2022-06-15] MEDS ORDERED: GLUC1KIT IJ (17:01)
[2022-06-15] MEDS ORDERED: INSU100I10 SQ (17:01)
[2022-06-15] MEDS ORDERED: GABA100C PO (17:01)
[2022-06-15] MEDS ORDERED: GABA300C PO (17:01)
[2022-06-15] MEDS ORDERED: MELA3TAB39 PO (17:01)
--- NOTE | 2022-06-15 17:43 | Consultation-Cardiology ---
HPI-Cardiology Cardiology Consultation Date of Consultation 06/15/22 Date of Admission Time Seen by Provider: 17:37 Indication: Chest pain HPI 61 years old gentleman resident of [facility] [place], patient suffers from mental retardation. Brought in for chest pain, has been having recurrent chest pain in the retrosternal area radiating to both side and has being lower back pain. No shortness of breath. No palpitation. Reported that he has been having chest pain on and off for long period of time. Currently feeling well, denied any active chest pain. Cardiac enzymes continue to be normal, EKG was abnormal. Home Medications & Allergies Allergies: Coded Allergies: No Known Drug Allergies (Unverified , 12/02/21) Home Medication List Reviewed: Yes VPT-Neoyff-Aslslo Hx Patient Social History Marital Status: single Employed/Student: unemployed Smoking Status: Former Smoker Have you traveled recently?: No Alcohol Use?: No Immunizations Up To Date Date of Influenza Vaccine: Jan 31, 2022 Past Medical History Discussed below Family Medical History Significant Family History: No Pertinent Family Hx Review of Systems-General Review of Systems Constitutional: no symptoms reported EENTM: see HPI, no symptoms reported Respiratory: no symptoms reported, see HPI Cardiovascular: see HPI, chest pain Gastrointestinal: no symptoms reported, see HPI Genitourinary: no symptoms reported, see HPI Musculoskeletal: no symptoms reported Skin: no symptoms reported Psychiatric/Neurological: No Symptoms Reported Reviewed Test Results Reviewed Test Results Lab Laboratory Tests Test 06/15/22 14:00 06/15/22 16:30 Range/Units White Blood Count 6.6 4.3-11.0 10^3/uL Red Blood Count 4.28 L 4.30-5.52 10^6/uL Hemoglobin 12.9 L 13.3-17.7 g/dL Hematocrit 37 L 40-54 % Mean Corpuscular Volume 87 80-99 fL Mean Corpuscular Hemoglobin 30 25-34 pg Mean Corpuscular Hemoglobin Concent 35 32-36 g/dL Red Cell Distribution Width 12.7 10.0-14.5 % Platelet Count 309 130-400 10^3/uL Mean Platelet Volume 9.9 9.0-12.2 fL Immature Granulocyte % (Auto) 0 % Neutrophils (%) (Auto) 50 42-75 % Lymphocytes (%) (Auto) 36 12-44 % Monocytes (%) (Auto) 8 0-12 % Eosinophils (%) (Auto) 5 0-10 % Basophils (%) (Auto) 1 0-10 % Neutrophils # (Auto) 3.3 1.8-7.8 10^3/uL Lymphocytes # (Auto) 2.4 1.0-4.0 10^3/uL Monocytes # (Auto) 0.5 0.0-1.0 10^3/uL Eosinophils # (Auto) 0.3 0.0-0.3 10^3/uL Basophils # (Auto) 0.1 0.0-0.1 10^3/uL Immature Granulocyte # (Auto) 0.0 0.0-0.1 10^3/uL Sodium Level 142 135-145 MMOL/L Potassium Level 4.4 3.6-5.0 MMOL/L Chloride Level 101 98-107 MMOL/L Carbon Dioxide Level 30 21-32 MMOL/L Anion Gap 11 5-14 MMOL/L Blood Urea Nitrogen 16 7-18 MG/DL Creatinine 0.65 0.60-1.30 MG/DL Estimat Glomerular Filtration Rate 107 BUN/Creatinine Ratio 25 Glucose Level 136 H 70-105 MG/DL Calcium Level 10.1 8.5-10.1 MG/DL Corrected Calcium 9.9 8.5-10.1 MG/DL Magnesium Level 1.9 1.6-2.4 MG/DL Total Bilirubin 0.4 0.1-1.0 MG/DL Aspartate Amino Transf (AST/SGOT) 11 5-34 U/L Alanine Aminotransferase (ALT/SGPT) 5 0-55 U/L Alkaline Phosphatase 100 40-136 U/L Troponin I < 0.30 < 0.028 <0.028 NG/ML Total Protein 8.0 6.4-8.2 GM/DL Albumin 4.3 3.2-4.5 GM/DL Physical Exam Physical Exam Vital Signs Vital Signs - First Documented 06/15/22 13:50 Temp 36.4 Pulse 108 Resp 18 B/P (MAP) 120/75 (90) Pulse Ox 100 O2 Delivery Room Air Capillary Refill : Less Than 3 Seconds Height, Weight, BMI Height: '" Weight: lbs. oz. kg; 20.42 BMI Method: General Appearance: No Apparent Distress, WD/WN Eyes: Bilateral Eye Normal Inspection, Bilateral Eye PERRL, Bilateral Eye EOMI HEENT: PERRL/EOMI, Normal ENT Inspection, Pharynx Normal Neck: Full Range of Motion, Normal Inspection, Non Tender, Supple Respiratory: Chest Non Tender, Lungs Clear, Normal Breath Sounds, No Accessory Muscle Use, No Respiratory Distress Cardiovascular: Regular Rate, Rhythm, No Edema, No Murmur, Normal Peripheral Pulses Gastrointestinal: Normal Bowel Sounds, No Organomegaly, Non Tender, Soft Back: Normal Inspection, No CVA Tenderness, No Vertebral Tenderness Extremity: Normal Capillary Refill, Normal Inspection, Normal Range of Motion, Non Tender, No Calf Tenderness Neurologic/Psychiatric: Alert, No Motor/Sensory Deficits, Normal Mood/Affect Skin: Normal Color, Warm/Dry Lymphatic: No Adenopathy A/P-Cardiology Admission Diagnosis Chest pain Diabetes mellitus Abnormal EKG Assessment/Plan Chest pain, nonspecific etiology, reporting improvement EKG showed ST elevation in the inferior leads, subtle changes. No reciprocal changes. Cardiac enzymes 2 sets are negative I started him on aspirin and Lovenox and will repeat troponin in the morning, evaluate 2D echo History of reentry tachycardia, currently in sinus rhythm and doing well. 2D echo was done on December 03, 2021 showing ejection fraction 50-55, PA pressure 25 to 30 mmHg History of syncope, probably secondary to hypotension and dehydration. No further episodes of syncope were reported Hyperlipidemia, monitor lipids Diabetes mellitus, followed and managed by primary care physician Developmental delay, patient is oriented to time and place. Clinical Quality Measures AMI/AHF: ASA po Prior to arrival: DINH Estevez MD Jun 15, 2022 17:43
[2022-06-15] MEDS: DOCUSATE SODIUM 100 MG (COLACE) CAP PO SCH (20:54)
[2022-06-16] VITALS (11 sets, daily range): BP systolic 99–126; BP diastolic 66–89
[2022-06-16] MEDS ORDERED: ENOXAPARIN 80 MG/0.8 ML (LOVENOX) SYR SC SCH (04:00)
[2022-06-16 04:42] LABS: ALBUMIN 3.6 GM/DL (3.2-4.5); CHLORIDE 103 MMOL/L (98-107); POTASSIUM 4.2 MMOL/L (3.6-5.0); SODIUM 138 MMOL/L (135-145)
[2022-06-16 04:43] LABS: CALCIUM 9.2 MG/DL (8.5-10.1)
[2022-06-16 04:44] LABS: TRIGLYCERIDES 93 MG/DL (<150); VLDL CHOLESTEROL 19 MG/DL (5-40)
[2022-06-16 04:45] LABS: GLUCOSE 193 MG/DL (70-105)
[2022-06-16 04:46] LABS: BILIRUBIN,TOTAL 0.7 MG/DL (0.1-1.0); CARBON DIOXIDE 25 MMOL/L (21-32)
[2022-06-16 04:48] LABS: ALKALINE PHOSPHATASE 79 U/L (40-136); GFR ESTIMATED 100
[2022-06-16 04:49] LABS: CHOLESTEROL 141 MG/DL (< 200)
[2022-06-16 04:50] LABS: BUN/CREATININE RATIO 20; HDL CHOLESTEROL 43 MG/DL (40-60)
[2022-06-16 04:51] LABS: MAGNESIUM 1.8 MG/DL (1.6-2.4)
[2022-06-16 04:52] LABS: ALANINE AMINOTRANSFERASE 8 U/L (0-55)
--- NOTE | 2022-06-16 07:41 | Cardiology Progress Note ---
Subjective Date Seen by Provider: Jun 16, 2022 Time Seen by Provider: 07:40 Subjective/Events-last exam Patient was seen at bedside, laying down comfortably, reporting mild chest pain in the retrosternal area Review of Systems General: No Chills, No Night Sweats, No Fatigue, No Malaise, No Appetite, No Other HEENT: No Head Aches, No Visual Changes, No Eye Pain, No Ear Pain, No Dysphasia, No Sinus Congestion, No Post Nasal Drip, No Sore Throat, No Other Pulmonary: No Dyspnea, No Cough, No Pleuritic Chest Pain, No Other Cardiovascular: Chest Pain; No: Palpitations, Orthopnea, Paroxysmal Noc. Dyspnea, Edema, Lt Headedness, Other Objective-Cardiology Exam Last Set of Vital Signs Vital Signs 06/16/22 07:13 Temp 36.5 Pulse 87 Resp 18 B/P (MAP) 113/77 (89) Pulse Ox 98 O2 Delivery Room Air I&O Intake and Output 06/16/22 00:00 Intake Total 150 ml Balance 150 ml Intake Oral 150 ml Daily Weight Change No General: Alert, Oriented X3, Cooperative HEENT: Atraumatic, PERRLA Neck: Supple, No JVD, No Thyromegaly Lungs: Clear to Auscultation, Normal Air Movement Heart: Regular Rate, Normal S1, Normal S2, No Murmurs Abdomen: Normal Bowel Sounds, Soft, No Tenderness, No Hepatosplenomegaly, No Masses Extremities: No Clubbing, No Cyanosis, No Edema, Normal Pulses, No Tenderness/Swelling Skin: No Rashes, No Breakdown, No Significant Lesion Neuro: Normal Gait, Normal Speech, Strength at 5/5 X4 Ext, Normal Tone, Sensation Intact Psych/Mental Status: Mental Status NL, Mood NL Results Lab Laboratory Tests 06/15/22 14:00 06/16/22 04:11 A/P-Cardiology Admission Diagnosis Chest pain Diabetes mellitus Abnormal EKG Assessment/Plan Chest pain, nonspecific etiology, reporting improvement EKG showed ST elevation in the inferior leads, subtle changes. No reciprocal changes. Cardiac enzymes continue to be I started him on aspirin and Lovenox and will repeat troponin in the morning, evaluate 2D echo I will proceed with Lexiscan Myoview stress test today History of reentry tachycardia, currently in sinus rhythm and doing well. 2D echo was done on December 03, 2021 showing ejection fraction 50-55, PA pressure 25 to 30 mmHg History of syncope, probably secondary to hypotension and dehydration. No further episodes of syncope were reported Hyperlipidemia, monitor lipids Diabetes mellitus, followed and managed by primary care physician Developmental delay, patient is oriented to time and place. DINH SESAY MD Jun 16, 2022 07:41
[2022-06-16] MEDS ORDERED: REGADENOSON 0.4 MG/5 ML SYR (LEXISCAN) IV ONE ×2 (07:45→11:30)
[2022-06-16] MEDS: DOCUSATE SODIUM 100 MG (COLACE) CAP PO SCH (08:39)
[2022-06-16] MEDS: GABAPENTIN 100 MG (NEURONTIN) CAP PO SCH ×2 (08:39→12:53)
[2022-06-16] MEDS ORDERED: ASPIRIN 81 MG CHEW (CHILDREN'S ASA) PO SCH (09:00)
[2022-06-16] MEDS ORDERED: CATHETER FLUSH 10 ML SYR IVP PRN (10:30)
[2022-06-16] MEDS ORDERED: inSUlin ASPART (NovoLOG) 1 UNIT/0.01 ML (CHARGE PER UNIT) SC SCH (11:00)
[2022-06-16] MEDS ORDERED: ATOR10TA66 PO (14:51)
[2022-06-16] MEDS ORDERED: PANT40TA52 PO (14:53)
[2022-06-16] MEDS ORDERED: ENOXAPARIN 40 MG/0.4 ML (LOVENOX) SYR SC SCH (15:00)
--- NOTE | 2022-06-16 17:34 | Short Stay Summary-Hospitalist ---
History of Present Illness HPI/Chief Complaint Gabriele Gan is a 61 year old male with PMH cognitive impairment, T2DM on insulin, HLD, who presented from [facility] with chest pain. He reports pain in the center of his chest. He denies radiation. He denies associated symptoms. He says it comes and goes. He denies shortness of breath. He denies nausea, vomiting, abdominal pain, and diarrhea. He has no other complaints. Source: patient, RN/MD Exam Limitations: other (cognitive impairment) Date Seen 06/16/22 Time Seen by a Provider: 10:05 Attending Physician Kevin Tovar MD PCP Admitting Physician: Amy Amado MD Attending Physician: Amy Amado MD Referring Physician Date of Admission Jun 15, 2022 at 15:58 Home Medications & Allergies Home Medications Reviewed patient Home Medication Reconciliation performed by pharmacy medication reconciliations deployment technician and/or nursing. Patients Allergies have been reviewed. Allergies Allergies Coded Allergies No Known Drug Allergies (Unverified12/02/21) Past Qjypend-Dirhbv-Uygkoz Hx Patient Social History Marrital Status: single Employed/Student: unemployed Tobacco Use?: No Smoking Status: Former Smoker Smokeless Tobacco Frequency: Never a User Use of E-Cig and/or Vaping dev: No Substance use?: No Alcohol Use?: No Pt feels they are or have been: No Immunizations Up To Date Date of Influenza Vaccine: Jan 31, 2022 Current Status Advance Directives: No Primary Language: Taiwanese Preferred Spoken Language: Taiwanese Is interpretation needed?: No Sensory deficits: Vision impairment Implanted or Applied Medical D: None Past Medical History High Cholesterol Developmental Disorder Diabetes, Insulin dep Family Medical History Reviewed Nursing Family Hx No Pertinent Family Hx Review of Systems Constitutional: no symptoms reported EENTM: no symptoms reported Respiratory: no symptoms reported Cardiovascular: chest pain Physical Exam Physical Exam Vital Signs Vital Signs - First Documented 06/15/22 13:50 Temp 36.4 Pulse 108 Resp 18 B/P (MAP) 120/75 (90) Pulse Ox 100 O2 Delivery Room Air Capillary Refill : Less Than 3 Seconds Height, Weight, BMI Height: '" Weight: lbs. oz. kg; 20.42 BMI Method: General Appearance: No Apparent Distress, WD/WN Eyes: Bilateral Eye Normal Inspection, Bilateral Eye PERRL, Bilateral Eye EOMI HEENT: PERRL/EOMI, Pharynx Normal Neck: Normal Inspection, Supple Respiratory: Chest Non Tender, Lungs Clear, Normal Breath Sounds, No Accessory Muscle Use, No Respiratory Distress Cardiovascular: Regular Rate, Rhythm, No Edema, No Murmur Gastrointestinal: Normal Bowel Sounds, Non Tender, Soft Extremity: Normal Inspection, Non Tender, No Pedal Edema Neurologic/Psychiatric: Alert, No Motor/Sensory Deficits, Normal Mood/Affect Skin: Normal Color, Warm/Dry Results Results/Procedures Labs Laboratory Tests 06/15/22 14:00 06/16/22 04:11 Patient resulted labs reviewed. Imaging: Reviewed Imaging Report Short Stay Diagnosis Discharge Diagnosis-Short Stay Admission Diagnosis Chest pain Final Discharge Diagnosis Chest pain Conclusion Plan Chest pain Dyslipidemia T2DM on insulin Cognitive impairment Cardiology consulted Troponin normal Stress test negative Started on Protonix Started on Lipitor Follow up with your PCP in a week or two Diagnosis/Problems Diagnosis/Problems (1) Chest pain Status: Acute Qualifiers: Qualified Codes: R07.9 - Chest pain, unspecified (2) GERD (gastroesophageal reflux disease) Status: Acute (3) T2DM (type 2 diabetes mellitus) Status: Acute Qualifiers: Qualified Codes: E11.9 - Type 2 diabetes mellitus without complications; 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
[2022-06-16] MEDS ORDERED: AtorvaSTATin TABLET 10 MG TABLET PO SCH (21:00)
[2022-06-17] MEDS ORDERED: metFORMIN 500 MG (GLUCOPHAGE) TAB PO SCH (07:00)
--- NOTE | 2022-06-17 12:03 | Cardiology Stress Test Report ---
Stress Test Report Date of Procedure/Referring: Date of Procedure: Jun 16, 2022 PCP Kevin Tovar MD Admitting Physician Admitting Physician: Alessia Amado MD Attending Physician: Alessia Amado MD Indications: CP Baseline Heart Rate: 93 Baseline Blood Pressure: Blood Pressure Systolic: 126 Blood Pressure Diastolic: 83 Baseline Vitals Vital Signs Date Time Temp Pulse Resp B/P (MAP) Pulse Ox O2 Delivery O2 Flow Rate FiO2 06/15/22 13:50 36.4 108 18 120/75 (90) 100 Room Air Baseline EKG: Baseline EKG: NSR Summary After explaining the procedure to the patient, he signed a consent and then brought to the stress nuclear laboratory. Patient received 0.4 mg Lexiscan for stress test, ECG, heart rate and blood pressure were monitored continuously. Resting and stress dose of radio tracer were injected, imaging was acquired and reviewed in short axis, horizontal long axis and vertical long axis views. TID: 1.1 SSS: 6 SDS: 1 EF: 68 Patient tolerated Lexiscan well Fixed defect of the anterior septum, no significant ischemia or infarction on SPECT images Normal left ventricular size, EF 68% DINH SESAY MD Jun 17, 2022 12:03
[2022-06-18] MEDS ORDERED: metFORMIN 500 MG (GLUCOPHAGE) TAB PO SCH (07:00)
== END 2022-06-16 16:45 ==
LOC: EDUNIT# 13:44 → ER FS 13:45 → UNDOADMOB 15:58 → CSD 15:58 → UNDODISOB 06-16 16:45
PROVIDERS: ADMIT Internal Medicine; ATTEND Internal Medicine
DX: R07.89 Other chest pain (principal); R94.31 Abnormal electrocardiogram [ECG] [EKG]; R62.50 Unspecified lack of expected normal physiological development in childhood; E78.5 Hyperlipidemia, unspecified; G31.84 Mild cognitive impairment of uncertain or unknown etiology; K21.9 Gastro-esophageal reflux disease without esophagitis; E11.9 Type 2 diabetes mellitus without complications; Z79.4 Long term (current) use of insulin; Z87.891 Personal history of nicotine dependence; Z79.899 Other long term (current) drug therapy; Z79.84 Long term (current) use of oral hypoglycemic drugs
CPT/HCPCS: 36415; 71045; 78452; 80053 ×2; 80061; 82947; 83735 ×2; 84484 ×3; 85025; 93005 ×2; 93017; 96372; 99283; A9502; C8929; G0378; 93306

== ENCOUNTER → 2022-12-01 | Outpatient (CLI) | payer MEDICARE, MEDICAID ==
[~2022-12-01] MED LIST changes: +ACET-2267 PO; +ATOR10TA66 PO; +GABA100C PO; +GABA300C PO; +GLUC1KIT IJ; +INSU100C3 SQ; +LIDO1ADH66 TP; +MELA3TAB39 PO; +POLY17PO6 PO
[2022-12-01 14:50] LABS: POTASSIUM 4.2 MMOL/L (3.6-5.0)
[2022-12-01 14:51] LABS: ALBUMIN 4.2 GM/DL (3.2-4.5); BILIRUBIN,TOTAL 0.5 MG/DL (0.1-1.0); CALCIUM 9.5 MG/DL (8.5-10.1); CREATININE SERUM 0.71 MG/DL (0.60-1.30); TOTAL PROTEIN 6.7 GM/DL (6.4-8.2)
== END ==
PROVIDERS: ATTEND Pediatrics
DX: E11.65 Type 2 diabetes mellitus with hyperglycemia (principal)
CPT/HCPCS: 80053